=== PATIENT | female | born 1935 | race American Indian/Alaskan Native ===

== ENCOUNTER 2016-10-14 16:34 | Observation (INO) | payer MEDICARE, MEDICAID ==
--- NOTE | 2016-10-14 18:31 | ED PDOC ---
Arrival/HPI - General Chief Complaint: Abdominal Pain Time Seen by Provider: 10/14/16 16:50 Historian: Fdc - History of Present Illness Narrative History of Present Illness (Text): 10/14/16 18:27 A 81 year old female, whose past medical history includes CVA, was sent into the emergency department from long-term for a gastrostomy tube replacement. At baseline patient is non-verbal and has decreased response. ROS limited to patient not verbally communicating. PMD: Dr. Roberts Time/Duration: Prior to Arrival Symptom Course: Unchanged Quality: Other Context: Home (retirement) Past Medical History - Provider Review Nursing Documentation Reviewed: Yes - Cardiac Hx Cardiac Disorders: Yes Hx Hypertension: Yes Hx Pacemaker: No - Neurological HX Cerebrovascular Accident: Yes Hx Paralysis: Yes Hx Seizures: Yes - HEENT Hx HEENT Disorder: Yes Hx Cataracts: Yes - Hematological/Oncological Hx Blood Transfusions: No Hx Blood Transfusion Reaction: No - Musculoskeletal/Rheumatological Hx Musculoskeletal Disorders: Yes (CONTRACTURES/ R HEMIPARESIS) - Gastrointestinal Hx Gastrointestinal Disorders: Yes Hx Gastroesophageal Reflux: Yes - Genitourinary/Gynecological Hx Genitourinary Disorders: Yes Hx Incontinence: Yes - Psychiatric Hx Emotional Abuse: No Hx Physical Abuse: No Hx Substance Use: No - Surgical History Other/Comment: gastrostomy - Anesthesia Hx Anesthesia: Yes Hx Anesthesia Reactions: No Hx Malignant Hyperthermia: No - Suicidal Assessment Feels Threatened In Home Enviroment: No Family/Social History - Physician Review Nursing Documentation Reviewed: Yes Family/Social History: No Known Family HX Smoking Status: Unknown If Ever Smoked Hx Alcohol Use: No Hx Substance Use: No Allergies/Home Meds Allergies/Adverse Reactions: Allergies No Known Allergies Allergy (Verified 02/17/16 14:29) Home Medications: Home Meds Medication Instructions Recorded Confirmed Famotidine 40 mg PEG QPM 12/12/12 02/17/16 Magnesium Hydroxide [Milk Of 5 ml PEG PRN PRN 12/12/12 02/17/16 Magnesia] Multivit-Minerals/Ferrous Gluc 15 ml PEG DAILY 12/12/12 02/17/16 [Certavite 15 ml] levETIRAcetam [Keppra] 5 ml PEG BID 12/12/12 02/17/16 Nitroglycerin [Nitro-Dur] 1 patch TD QAM 04/25/14 02/17/16 Acetaminophen [Tylenol 160mg/5ml 20 ml PEG Q4 11/13/15 02/20/16 Oral Soln] Amlodipine Besylate [Norvasc] 2.5 mg PEG QAM 11/13/15 02/17/16 Clopidogrel Bisulfate [Plavix] 75 mg PEG DAILY 11/13/15 02/17/16 Furosemide [Lasix] 40 mg PEG BID 11/13/15 02/20/16 Lactose-Reduced Food/Fiber [Jevity 60 ml PEG Q1 11/13/15 02/17/16 1 Kulwinder 240 ml] Levothyroxine Sodium 250 mcg PEG DAILY 11/13/15 02/17/16 Calmoseptine Ointment 1 pkt TOP Q8 02/17/16 02/17/16 Desitin 13% 13 % TOP Q8 02/17/16 02/17/16 Jevity 1 Kulwinder 840 ml PEG 02/17/16 Milk Of Magnesia 30 ml PEG HS PRN 02/17/16 02/17/16 Levofloxacin [Levaquin] 500 mg PEG DAILY 02/20/16 02/20/16 Review of Systems - Review of Systems Systems not reviewed;Unavailable: Other (Patient is not verbally communicating) Physical Exam - Physical Exam Physical Exam Limitations: Clinical Condition Vital Signs Reviewed: Yes Vital Signs Temp Pulse Resp BP Pulse Ox 10/14/16 21:30 98.6 F 66 18 127/67 100 10/14/16 18:35 71 16 95/54 L 100 10/14/16 16:35 98.6 F 72 17 106/63 96 Temperature: Afebrile Blood Pressure: Normal Pulse: Regular Respiratory Rate: Normal Appearance: Positive for: Non-Toxic, Comfortable, Other (Obese female) Mental Status: No: Agitated, Lethargic - Systems Exam Head: Present: Atraumatic, Normocephalic Mouth: Present: Dry Respiratory/Chest: Present: Clear to Auscultation, Good Air Exchange. No: Respiratory Distress, Accessory Muscle Use Cardiovascular: Present: Regular Rate and Rhythm, Normal S1, S2. No: Murmurs Abdomen: Present: Normal Bowel Sounds (there is a tube in orifice in abdomen with some discharge surrounding the site. no surrounding cellulitis or tenderness. abdomen is soft.). No: Tenderness, Distention, Peritoneal Signs Neurological: No: Speech Normal (At baseline, not verbal) Skin: Present: Warm, Dry, Normal Color. No: Rashes Psychiatric: Present: Alert. No: Oriented x 3, Agitated, Lethargic Medical Decision Making ED Course and Treatment: 10/14/16 18:27 Impression: A 81 year old female sent in for gastrostomy tube replacement. Plan: -- Labs -- Urine culture and Urinalysis -- Reassess and disposition Progress Notes: Case discussed with Dr. Roberts, who accepts admission to med/surg for dislodged g-tube. dr roberts came to see pt at bedside. reqiests [facility] manager dr castaneda to consult for gtube replacement called dr castaneda 813 pm gi fellow responded [address] Hopkins - requested xray of abdomen- whcih was ordered. 10/14/16 20:13 10/14/16 20:21 10/14/16 21:02 10/14/16 21:05 - Lab Interpretations I have reviewed the lab results: Yes - Medication Orders Current Medication Orders: Famotidine (Pepcid) 20 mg IVP DAILY [facility] Last Admin: 10/15/16 09:53 Dose: 20 MG IVP Administration Document 10/15/16 09:53 SD (Rec: 10/15/16 09:53 SD [id number]) Charges for Administration # of IVP Administrations 1 Furosemide (Lasix) 40 mg IVP DAILY [facility] Last Admin: 10/15/16 09:57 Dose: 40 MG MAR Blood Pressure Document 10/15/16 09:57 SD (Rec: 10/15/16 10:07 SD [id number]) Blood Pressure Blood Pressure (100/60-150/90) 119/58 IVP Administration Document 10/15/16 09:57 SD (Rec: 10/15/16 10:07 SD [id number]) Charges for Administration # of IVP Administrations 1 Levetiracetam (Keppra 500mg Ivpb) 100 mls @ 400 mls/hr IVPB Q12 [facility] Last Admin: 10/15/16 09:52 Dose: 400 MLS/HR eMAR Start Stop Document 10/15/16 09:52 SD (Rec: 10/15/16 09:52 SD [id number]) Intravenous Solution Start Date 10/15/16 Start Time 09:52 End Date 10/15/16 End time 10:07 Total Infusion Time 15 Sodium Chloride (Sodium Chloride 0.45%) 1,000 mls @ 30 mls/hr IV .Q24H [facility] Last Admin: 10/14/16 21:19 Dose: 30 MLS/HR eMAR Start Stop Document 10/14/16 21:19 MR (Rec: 10/14/16 21:19 MR [id number]) Intravenous Solution Start Date 10/14/16 Start Time 21:00 Sodium Chloride (Sodium Chloride 0.9%) 1,000 mls @ 75 mls/hr IV .[id number] [facility] Stop: 10/15/16 16:16 Nitroglycerin (Nitro-Dur 0.2 Mg/Hr Patch) 1 patch TD QAM [facility] Last Admin: 10/15/16 10:07 Dose: Discontinued Medications Amlodipine Besylate (Norvasc) 2.5 mg PEG QAM [facility] Cefazolin Sodium (Ancef) Confirm Administered Dose 1 gm .ROUTE .STK-MED ONE Stop: 10/15/16 13:39 Potassium Chloride (Potassium Chloride 10 Meq/100 Ml) 100 mls @ 100 mls/hr IVPB ONCE ONE Stop: 10/15/16 09:31 Last Admin: 10/15/16 09:52 Dose: 100 MLS/HR eMAR Start Stop Document 10/15/16 09:52 SD (Rec: 10/15/16 09:53 SD [id number]) Intravenous Solution Start Date 10/15/16 Start Time 09:53 End Date 10/15/16 End time 10:53 Total Infusion Time 60 Levothyroxine Sodium (Synthroid) 250 mcg PEG DAILY [facility] Midazolam HCl (Versed Inj) Confirm Administered Dose 2 mg .ROUTE .STK-MED ONE Stop: 10/15/16 13:39 Ondansetron HCl (Zofran Inj) 4 mg IVP ONCE PRN PRN Reason: Nausea/Vomiting Stop: 10/15/16 14:14 Propofol (Diprivan) Confirm Administered Dose 200 mg .ROUTE .STK-MED ONE Stop: 10/15/16 13:41 - Scribe Statement The provider has reviewed the documentation as recorded by the Benjaminibshahid Becerra Provider Scribe Attestation: All medical record entries made by the Scribe were at my direction and personally dictated by me. I have reviewed the chart and agree that the record accurately reflects my personal performance of the history, physical exam, medical decision making, and the department course for this patient. I have also personally directed, reviewed, and agree with the discharge instructions and disposition. Disposition/Present on Arrival - Present on Arrival Any Indicators Present on Arrival: No History of DVT/PE: No History of Uncontrolled Diabetes: No Urinary Catheter: No History of Decub. Ulcer: No History Surgical Site Infection Following: None - Disposition Have Diagnosis and Disposition been Completed?: Yes Diagnosis: Gastrostomy tube obstruction Disposition: HOSPITALIZED Disposition Time: 18:00 Patient Plan: Observation Patient Problems: Current Active Problems Problem Status Diagnosed Gastrostomy tube obstruction Acute Condition: STABLE
[2016-10-14] MEDS ORDERED: Sodium Chloride 0.45% 1,000 ML IV SCH (19:15)
[2016-10-14 19:38] LABS: ADD MANUAL DIFF? NO
[2016-10-14 19:41] LABS: BASO # 0.02 K/mm3 (0.0-2.0); BASO % 0.3 % (0.0-3.0); EOS # 0.3 (0.0-0.7); EOS % 4.1 % (1.5-5.0); GRAN % 58.6 % (50.0-68.0); HEMATOCRIT 38.1 % (36.0-48.0); LYMPH # 1.6 (1.2-3.4); LYMPH % 24.1 % (22.0-35.0); MEAN CELL VOLUME 91.6 fL (80.0-105.0); MEAN CORPUSCULAR HEMOGLOBIN 29.6 pg (25.0-35.0); MEAN CORPUSCULAR HGB CONC 32.3 g/dl (31.0-37.0); MEAN PLATELET VOLUME 10.7 fl (7.0-11.0); MONO # 0.9 (0.1-0.6); MONO % 12.9 % (1.0-6.0); PLATELET COUNT 250 10^3/uL (120.0-450.0); RED CELL DISTRIBUTION WIDTH 15.8 % (11.5-14.5); WHITE BLOOD COUNT 6.7 10^3/ul (4.5-11.0)
[2016-10-14 19:52] LABS: ALKALINE PHOSPHATASE 98 U/L (38-133); ALT/SGPT 17 U/L (7-56); AST/SGOT 26 U/L (15-39); BILIRUBIN,TOTAL 0.7 mg/dL (0.2-1.3); BLOOD UREA NITROGEN 27 mg/dL (7-21); CALCIUM 9.5 mg/dL (8.4-10.5); CARBON DIOXIDE 35 mmol/L (21-33); CHLORIDE 100 mmol/L (98-107); GFR AFRICAN-AMERICAN > 60; GLUCOSE,RANDOM 83 mg/dL (70-110); INR 1.04 (0.93-1.08); PARTIAL THROMBOPLASTIN TIME 32.1 Seconds (23.7-30.8); POTASSIUM 4.1 mmol/L (3.6-5.0); SODIUM 142 mmol/L (132-148); TOTAL PROTEIN 7.3 g/dL (5.8-8.3)
[2016-10-14] MEDS: levETIRAcetam 500mg IVPB 100 ML IVPB SCH (23:46)
--- NOTE | 2016-10-15 04:56 | HP ---
SUBJECTIVE: I know the patient for many years at [facility] where I see her, she lives the re the permanently. I had a call from the nurse today that apparently the PEG tube got dislodged and it needs to be changed. So she was sent to the Emergency Room for evaluation, is too late get anyth ing done tonight. We are going to put her on observation, keep her overnight, and hopefully tomorrow they can do the PEG tube change and discharge her back to the care home tomorrow. PAST MEDICAL HISTORY: She has a past medical history of hypertension, CVA, paralysis, seizures, charisma racts and GERD. She has contractures with right weakness and paralysis, reflux disease, incontinence . She has a gastrostomy tube. FAMILY HISTORY: Hypertension in the family. SOCIAL HISTORY: No smoking, no drinking, no drugs. She is 81 years old. ALLERGIES: No known drug allergies. MEDICATIONS: She takes famotidine, multivitamin, Keppra for seizures, Nitro drip for CAD, Tylenol, N orvasc, hypertension, Plavix secondary to stroke, Lasix for the CHF, levothyroxine for hypothyroidism . She is on Jevity. REVIEW OF SYSTEMS: She is nonverbal. She just looks at you, so it is hard to get any sense of revie w of systems. PHYSICAL EXAM: HEENT: His head is atraumatic, normocephalic. She will look at you. She is nonverbal. Throat is m oist. NECK: Supple. HEART: Regular rate. LUNGS: Decreased breath sounds, but clear with poor inspiration. ABDOMEN: Soft, morbidly obese. PEG tube is missing. Positive bowel sounds. EXTREMITIES: Left side has +2/4 pitting edema. Right side has trace edema. She has right-sided par alysis from an old stroke. Her PEG tube is dislodged. IMPRESSION AND PLAN: Have a GI consult for PEG tube placement. We will check her labs, put her back on her medications. I know this patient very well from the care home, she is here for PEG dislod gement. Oswaldo Russell DO cc: [id number] TT: 10/15/2016 04:55:43 [email or web address]
[2016-10-15 06:00] VITALS: BMI 44.6
[2016-10-15 07:10] LABS: HEMATOCRIT 36.1 % (36.0-48.0); MEAN CELL VOLUME 91.4 fL (80.0-105.0); MEAN CORPUSCULAR HEMOGLOBIN 29.1 pg (25.0-35.0); MEAN CORPUSCULAR HGB CONC 31.9 g/dl (31.0-37.0); RED CELL DISTRIBUTION WIDTH 15.7 % (11.5-14.5); WHITE BLOOD COUNT 6.1 10^3/ul (4.5-11.0)
[2016-10-15 07:36] LABS: ALKALINE PHOSPHATASE 95 U/L (38-133); ALT/SGPT 18 U/L (7-56); AST/SGOT 22 U/L (15-39); BILIRUBIN,TOTAL 0.6 mg/dL (0.2-1.3); BLOOD UREA NITROGEN 26 mg/dL (7-21); CALCIUM 9.2 mg/dL (8.4-10.5); CARBON DIOXIDE 32 mmol/L (21-33); CHLORIDE 104 mmol/L (98-107); GFR AFRICAN-AMERICAN > 60; GLUCOSE,RANDOM 85 mg/dL (70-110); POTASSIUM 3.5 mmol/L (3.6-5.0); SODIUM 145 mmol/L (132-148); TOTAL PROTEIN 6.9 g/dL (5.8-8.3)
[2016-10-15] MEDS ORDERED: Potassium Chloride 10 mEq 100 ML IVPB ONE (08:32)
--- NOTE | 2016-10-15 08:43 | RAD ---
HISTORY: g tube replacment COMPARISON: Comparison is made to 11/14/2015 FINDINGS: BOWEL: [id number] constipation is noted. No evidence of SBO. BONES: Normal. OTHER FINDINGS: None. IMPRESSION: [id number] constipation.
--- NOTE | 2016-10-15 09:46 | PN ---
DATE: 10/15/2016 The patient is resting comfortably in bed. She is alert. She is at her baseline. She is getting he r medications through the IV now because she has a feeding tube issue, and she is n.p.o. PHYSICAL EXAMINATION: VITAL SIGNS: Temp 98, 72 pulse, 169/88 blood pressure, 20 respiratory rate, 100% O2 sat on room air. HEENT: Head is atraumatic, normocephalic. Her eyes are open - that is her baseline. Nonverbal. HEART: Regular rate. LUNGS: Decreased breath sounds, but clear. ABDOMEN: Soft, morbidly obese. PEG tube is out. EXTREMITIES: No edema. She has right-sided paralysis from the stroke. PLAN: The plan, as far as I can see, is to put the PEG tube back in today with [facility] and then get her d ischarged later today back to the [facility] where nurses can take care of her, watch the f eedings, and keep an eye on her. I put the plan in place. Hopefully, CAHY will do the PEG tube today, and we can get her discharged later this afternoon. She is here for PEG tube placement. She is on observation. Oswaldo Russell DO cc: [id number] TT: 10/15/2016 09:46:24 Confirmation # [id number] Dictation # [id number] jn
[2016-10-15] MEDS: levETIRAcetam 500mg IVPB 100 ML IVPB SCH (09:52)
[2016-10-15] MEDS ORDERED: Nitroglycerin 0.2 mg/hr Top Patch TD SCH (10:00)
[2016-10-15] MEDS ORDERED: Levothyroxine 200 MCG TAB PEG SCH (10:00)
--- NOTE | 2016-10-15 10:54 | CON ---
DATE: 10/15/2016 HISTORY OF PRESENT ILLNESS: The patient is an 81-year-old woman who presents from a assisted aft er her feeding tube and PEG fell out. PAST MEDICAL HISTORY: Notable for history of multiple CVAs in the past which has resulted in the pat ient requiring a feeding tube. Her cardiac risk factors include hypertension. In addition, the elaina ent suffers from hypothyroidism. Her previous cardiac evaluation in 01/2016 revealed normal LV function with LVH. There was mild pulm onary hypertension. SOCIAL HISTORY: The patient is from a assisted. REVIEW OF SYSTEMS: Unavailable. PHYSICAL EXAMINATION: GENERAL: The patient is in bed, unable to answer questions. Blood pressure 156/82, heart rate is in the 70s. NECK: Negative JVD. LUNGS: Decreased breath sounds without rales. HEART: Reveals S1, S2. EXTREMITIES: Without edema. There is no EKG in the chart. LABORATORIES: Hemoglobin is 11.5. Chemistries: The potassium is 3.5, BUN and creatinine is 26/0.6. IMPRESSION: 1. Status post multiple cerebrovascular accidents. 2. Diabetes mellitus. 3. Hypertension. 4. Anemia. 5. Marked multi-CVA and dementia. PLAN: Given these findings, the patient does not need anesthesia to have her PEG replaced. I have d iscussed it with the GI consultation who will be doing a bedside replacement of her PEG tube. No fur ther cardiac workup is indicated at this time. Ayan Lee MD cc: [id number] TT: 10/15/2016 10:54:12 Confirmation # [id number] Dictation # [id number] [email or web address]
--- NOTE | 2016-10-15 12:20 | CP.PCM.CON ---
<Oz Case - Last Filed: 10/15/16 12:41> History of Present Illness - History of Present Illness History of Present Illness: PGY4 GI Fellow Consult Note Patient is an 81yo female with PMHx significant for CVA, vascular dementia, seizures, HTN, GERD who presented to the ED from [place] with PEG dislodgement. The patient is unable to provide any history. The patient was noted to have had PEG dislodged and was immediately sent to the ED for evaluation. The PEG tube was placed in the external opening to maintain patency. A bedside PEG exchange by our service was unsuccessful. Currently, patient has been maintained NPO. She is on plavix for CVA with last dose prior to admission. Case discussed with the patient's daughter iGovana (# on chart). PMHx: See HPI PSHx: Multiple PEG exchanges, last performed 10/2015 FHx: Multiple members with HTN Social: No history of tobacco, EtOH or illicit drug use Review of Systems - Review of Systems Review of Systems: Unable to perform given clinical condition, aphasic Past Patient History - Past Social History Smoking Status: Unknown If Ever Smoked - CARDIAC Hx Cardiac Disorders: Yes Hx Hypertension: Yes Hx Pacemaker: No - NEUROLOGICAL HX Cerebrovascular Accident: Yes Hx Paralysis: Yes Hx Seizures: Yes - HEENT Hx HEENT Problems: Yes Hx Cataracts: Yes - HEMATOLOGICAL/ONCOLOGICAL Hx Blood Transfusions: No Hx Blood Transfusion Reaction: No - MUSCULOSKELETAL/RHEUMATOLOGICAL Hx Musculoskeletal Disorders: Yes (CONTRACTURES/ R HEMIPARESIS) - GASTROINTESTINAL Hx Gastrointestinal Disorders: Yes Hx Gastroesophageal Reflux: Yes - GENITOURINARY/GYNECOLOGICAL Hx Genitourinary Disorders: Yes Hx Incontinence: Yes - PSYCHIATRIC Hx Emotional Abuse: No Hx Physical Abuse: No Hx Substance Use: No - SURGICAL HISTORY Other/Comment: gastrostomy - ANESTHESIA Hx Anesthesia: Yes Hx Anesthesia Reactions: No Hx Malignant Hyperthermia: No Meds Allergies/Adverse Reactions: Allergies Allergy/AdvReac Type Severity Reaction Status Date / Time No Known Allergies Allergy Verified 02/17/16 14:29 - Medications Medications: Current Medications Famotidine (Pepcid) 20 mg IVP DAILY [facility] Last Admin: 10/15/16 09:53 Dose: 20 mg Furosemide (Lasix) 40 mg IVP DAILY [facility] Last Admin: 10/15/16 09:57 Dose: 40 mg Levetiracetam (Keppra 500mg Ivpb) 100 mls @ 400 mls/hr IVPB Q12 [facility] Last Admin: 10/15/16 09:52 Dose: 400 mls/hr Sodium Chloride (Sodium Chloride 0.45%) 1,000 mls @ 30 mls/hr IV .Q24H [facility] Last Admin: 10/14/16 21:19 Dose: 30 mls/hr Nitroglycerin (Nitro-Dur 0.2 Mg/Hr Patch) 1 patch TD QAM [facility] Last Admin: 10/15/16 10:07 Dose: Not Given Physical Exam - Constitutional Appears: Non-toxic, No Acute Distress Additional comments: obese - Eye Exam Eye Exam: PERRL - ENT Exam ENT Exam: Mucous Membranes Dry - Respiratory Exam Respiratory Exam: Clear to Auscultation Bilateral. absent: Rales, Rhonchi, Wheezes - Cardiovascular Exam Cardiovascular Exam: RRR, +S1, +S2 - GI/Abdominal Exam GI & Abdominal Exam: Normal Bowel Sounds, Soft. absent: Distended, Firm, Guarding, Organomegaly, Rigid, Tenderness Additional comments: PEG site open but cannot pass tube through to stomach - Extremities Exam Additional comments: contractures noted - Skin Skin Exam: Dry, Warm Results - Vital Signs Recent Vital Signs: Last Vital Signs Temp 98.0 F 10/15/16 08:00 Pulse 70 10/15/16 08:00 Resp 20 10/15/16 08:00 BP 119/58 L 10/15/16 09:57 Pulse Ox 98 10/15/16 08:00 - Labs Result Diagrams: 10/15/16 06:26 10/15/16 06:26 Labs: Laboratory Results - last 24 hr 10/14/16 10/15/16 19:30 06:26 WBC 6.7 D 6.1 RBC 4.16 3.95 Hgb 12.3 11.5 L Hct 38.1 36.1 MCV 91.6 91.4 MCH 29.6 29.1 MCHC 32.3 31.9 RDW 15.8 H 15.7 H Plt Count 250 238 MPV 10.7 11.0 Gran % 58.6 Lymph % (Auto) 24.1 Prowers % (Auto) 12.9 H Eos % (Auto) 4.1 Baso % (Auto) 0.3 Gran # 3.90 Lymph # 1.6 Prowers # 0.9 H Eos # 0.3 Baso # 0.02 PT 11.2 INR 1.04 APTT 32.1 H Sodium 142 145 Potassium 4.1 3.5 L Chloride 100 104 Carbon Dioxide 35 H 32 Anion Gap 11 13 BUN 27 H 26 H Creatinine 0.6 0.6 Est GFR ( Amer) > 60 > 60 Est GFR (Non-Af Amer) > 60 > 60 Random Glucose 83 85 Calcium 9.5 9.2 Total Bilirubin 0.7 0.6 AST 26 22 ALT 17 18 Alkaline Phosphatase 98 95 Total Protein 7.3 6.9 Albumin 3.7 3.4 Globulin 3.6 3.4 Albumin/Globulin Ratio 1.0 L 1.0 L Assessment & Plan - Assessment and Plan (Free Text) Assessment: Patient is an 81yo female with PMHx significant for CVA, vascular dementia, seizures, HTN, GERD who presented to the ED from [place] with PEG dislodgement. -PEG tube malfunction -H/O CVA on Plavix -HTN Plan: -NPO -Failed bedside replacement -Will attempt to place endoscopically this afternoon -Plavix currently being held, last dose yesterday - Date & Time Date: 10/15/16 Time: 06:50 <Reynaldo Kim - Last Filed: 10/15/16 15:29> Meds - Medications Medications: Current Medications Famotidine (Pepcid) 20 mg IVP DAILY [facility] Last Admin: 10/15/16 09:53 Dose: 20 mg Furosemide (Lasix) 40 mg IVP DAILY [facility] Last Admin: 10/15/16 09:57 Dose: 40 mg Levetiracetam (Keppra 500mg Ivpb) 100 mls @ 400 mls/hr IVPB Q12 [facility] Last Admin: 10/15/16 09:52 Dose: 400 mls/hr Sodium Chloride (Sodium Chloride 0.45%) 1,000 mls @ 30 mls/hr IV .Q24H [facility] Last Admin: 10/14/16 21:19 Dose: 30 mls/hr Sodium Chloride (Sodium Chloride 0.9%) 1,000 mls @ 75 mls/hr IV .[id number] [facility] Stop: 10/15/16 16:16 Nitroglycerin (Nitro-Dur 0.2 Mg/Hr Patch) 1 patch TD QAM [facility] Last Admin: 10/15/16 10:07 Dose: Not Given Results - Vital Signs Recent Vital Signs: Last Vital Signs Temp 98 F 10/15/16 15:00 Pulse 70 10/15/16 15:00 Resp 14 10/15/16 15:00 BP 162/84 H 10/15/16 15:00 Pulse Ox 99 10/15/16 15:00 - Labs Result Diagrams: 10/15/16 06:26 10/15/16 06:26 Labs: Laboratory Results - last 24 hr 10/14/16 10/15/16 19:30 06:26 WBC 6.7 D 6.1 RBC 4.16 3.95 Hgb 12.3 11.5 L Hct 38.1 36.1 MCV 91.6 91.4 MCH 29.6 29.1 MCHC 32.3 31.9 RDW 15.8 H 15.7 H Plt Count 250 238 MPV 10.7 11.0 Gran % 58.6 Lymph % (Auto) 24.1 Prowers % (Auto) 12.9 H Eos % (Auto) 4.1 Baso % (Auto) 0.3 Gran # 3.90 Lymph # 1.6 Prowers # 0.9 H Eos # 0.3 Baso # 0.02 PT 11.2 INR 1.04 APTT 32.1 H Sodium 142 145 Potassium 4.1 3.5 L Chloride 100 104 Carbon Dioxide 35 H 32 Anion Gap 11 13 BUN 27 H 26 H Creatinine 0.6 0.6 Est GFR ( Amer) > 60 > 60 Est GFR (Non-Af Amer) > 60 > 60 Random Glucose 83 85 Calcium 9.5 9.2 Total Bilirubin 0.7 0.6 AST 26 22 ALT 17 18 Alkaline Phosphatase 98 95 Total Protein 7.3 6.9 Albumin 3.7 3.4 Globulin 3.6 3.4 Albumin/Globulin Ratio 1.0 L 1.0 L Attending/Attestation - Attestation I have personally seen and examined this patient.: Yes I have fully participated in the care of the patient.: Yes I have reviewed all pertinent clinical information: Yes Notes (Text): Patient seen and examined with GI fellow. Agree with his note as documented above with the following additions/exceptions. This is an 81 yo female with PMHx significant for vascular dementia, stroke, seizures, HTN, who presented from intermediate with dislodged PEG. Unclear the timing of when PEG dislodged. Site with old PEG tube, slight mucous/blood. Attempted bedside placement with balloon replacement tube, however tract partially closed. Keep NPO, will plan for endoscopic placement today. Discussed with Dr. Russell. 10/15/16 12:36
[2016-10-15] MEDS ORDERED: Midazolam 2 MG/2 ML VIAL ONE (13:38)
[2016-10-15] MEDS ORDERED: Propofol 10 mg/ml Inj (20 ML) ONE (13:40)
[2016-10-15] MEDS ORDERED: Sodium Chloride 0.9% 1,000 ML IV SCH (14:15)
[2016-10-15 17:21] VITALS: BP 125/62; PULSE 70; RESP 18; TEMP 97.8; O2SAT 94
--- NOTE | 2016-10-16 18:43 | CARD ---
APPROVED REPORT EKG Measurement Heart [id number] PA [id number] <Conclusion> Normal sinus rhythm Left axis deviation Abnormal ECG
== END 2016-10-15 18:32 ==
LOC: ED 16:34 → ERH 18:24 → 5RNO 10-15 00:09
PROVIDERS: ADMIT Family Medicine; ATTEND Family Medicine
DX: K94.23 Gastrostomy malfunction (principal); Z43.1 Encounter for attention to gastrostomy; D64.9 Anemia, unspecified; E03.9 Hypothyroidism, unspecified; E11.9 Type 2 diabetes mellitus without complications; F01.50 Vascular dementia, unspecified severity, without behavioral disturbance, psychotic disturbance, mood disturbance, and anxiety; G81.91 Hemiplegia, unspecified affecting right dominant side; I10 Essential (primary) hypertension; I27.2 Other secondary pulmonary hypertension; K21.9 Gastro-esophageal reflux disease without esophagitis; K44.9 Diaphragmatic hernia without obstruction or gangrene; Y83.3 Surgical operation with formation of external stoma as the cause of abnormal reaction of the patient, or of later complication, without mention of misadventure at the time of the procedure; Z79.02 Long term (current) use of antithrombotics/antiplatelets; Z82.49 Family history of ischemic heart disease and other diseases of the circulatory system; Z86.73 Personal history of transient ischemic attack (TIA), and cerebral infarction without residual deficits; R56.9 Unspecified convulsions; H26.9 Unspecified cataract; M62.40 Contracture of muscle, unspecified site; R32 Unspecified urinary incontinence; I25.10 Atherosclerotic heart disease of native coronary artery without angina pectoris; I50.9 Heart failure, unspecified
CPT/HCPCS: 36415; 43246; 74000; 80053; 85025; 85027; 85610; 85730; 93005; 99283; G0378; J1940; J1953; J2250; J2704; J3480; J7030; J7040

== ENCOUNTER 2017-06-15 10:47 | Inpatient (IN) | payer MEDICARE, MEDICAID ==
[2017-06-15 11:21] VITALS: BMI 27.4
--- NOTE | 2017-06-15 12:06 | ED PDOC ---
Arrival/HPI - General Chief Complaint: Medical Clearance Time Seen by Provider: 06/15/17 10:57 Historian: Snf - History of Present Illness Narrative History of Present Illness (Text): 06/15/17 11:51 A 82 year old female, whose past medical history includes CVA, hypertension, seizures, GERD with PEG, and CHF, presents to the emergency department via EMS sent in by [facility] for GT replacement. At baseline the patient is non-verbal and body is contracted. HPI and ROS is limited due to the patient being non-verbal. HPI is obtained from jail. Symptom Onset: Other Activities at Onset: Rest Context: Other (jail) Past Medical History - Provider Review Nursing Documentation Reviewed: Yes - Cardiac Hx Cardiac Disorders: Yes Hx Hypertension: Yes Hx Pacemaker: No - Neurological HX Cerebrovascular Accident: Yes Hx Paralysis: Yes Hx Seizures: Yes - HEENT Hx HEENT Disorder: Yes Hx Cataracts: Yes - Hematological/Oncological Hx Blood Transfusions: No Hx Blood Transfusion Reaction: No - Musculoskeletal/Rheumatological Hx Musculoskeletal Disorders: Yes (CONTRACTURES/ R HEMIPARESIS) - Gastrointestinal Hx Gastrointestinal Disorders: Yes Hx Gastroesophageal Reflux: Yes - Genitourinary/Gynecological Hx Genitourinary Disorders: Yes Hx Incontinence: Yes - Psychiatric Hx Emotional Abuse: No Hx Physical Abuse: No Hx Substance Use: No - Surgical History Other/Comment: gastrostomy - Anesthesia Hx Anesthesia: Yes Hx Anesthesia Reactions: No Hx Malignant Hyperthermia: No - Suicidal Assessment Feels Threatened In Home Enviroment: No Family/Social History - Physician Review Nursing Documentation Reviewed: Yes Family/Social History: No Known Family HX Smoking Status: Unknown If Ever Smoked Hx Alcohol Use: No Hx Substance Use: No Allergies/Home Meds Allergies/Adverse Reactions: Allergies No Known Allergies Allergy (Verified 02/17/16 14:29) Home Medications: Home Meds Medication Instructions Recorded Confirmed Multivit-Minerals/Ferrous Gluc 15 ml PEG DAILY 12/12/12 06/15/17 [Certavite 15 ml] levETIRAcetam [Keppra] 5 ml PEG BID 12/12/12 06/15/17 Nitroglycerin [Nitro-Dur] 1 patch TD QAM 04/25/14 06/15/17 Acetaminophen [Tylenol 160mg/5ml 20 ml PEG Q4 11/13/15 06/15/17 Oral Soln] Amlodipine Besylate [Norvasc] 2.5 mg PEG QAM 11/13/15 06/15/17 Clopidogrel Bisulfate [Plavix] 75 mg PEG DAILY 11/13/15 06/15/17 Furosemide [Lasix] 40 mg PEG BID 11/13/15 06/15/17 Levothyroxine Sodium 250 mcg PEG DAILY 11/13/15 06/15/17 Milk Of Magnesia 30 ml PEG HS PRN 02/17/16 06/15/17 Pantoprazole [Protonix] 40 mg PEG DAILY 06/15/17 06/15/17 Potassium Chloride [Klor-Con] 20 meq PEG DAILY 06/15/17 06/15/17 Review of Systems - Review of Systems Systems not reviewed;Unavailable: Other (non-verbal; CVA history) Physical Exam Vital Signs Reviewed: Yes Vital Signs Temp Pulse Resp BP Pulse Ox 06/15/17 15:21 76 16 122/61 100 06/15/17 13:37 79 18 125/73 98 06/15/17 12:18 97.6 F 88 18 128/75 98 06/15/17 11:11 98.9 F 82 18 130/71 98 Temperature: Afebrile Blood Pressure: Normal Pulse: Regular Respiratory Rate: Normal Appearance: Positive for: Non-Toxic Pain Distress: None Mental Status: Positive for: other (Awake and non-verbal) - Systems Exam Head: Present: Atraumatic, Normocephalic Pupils: Present: PERRL Conjunctiva: Present: Normal Mouth: Present: Dry Neck: Present: Normal Range of Motion Respiratory/Chest: Present: Clear to Auscultation, Other (poor inspiration). No : Respiratory Distress, Accessory Muscle Use Cardiovascular: Present: Regular Rate and Rhythm, Normal S1, S2. No: Murmurs Abdomen: Present: Other (20e52ay induration area in epigastric area which crosses midline that extends underneath the left breast; areas of fluctuance and oozing with warmth; there is a 4x1.5cm area of superficial black ulceration ; G tube in place; rest of the abdomen is non-tender.) Upper Extremity: Present: Normal Inspection. No: Cyanosis, Edema Lower Extremity: Present: Edema (1+ edema), Other (left lower extremity is larger than the right lower extremity.) Neurological: Present: GCS=15, CN II-XII Intact. No: Speech Normal (non-verbal) Skin: Present: Warm, Dry, Normal Color. No: Rashes Psychiatric: Present: Alert Medical Decision Making ED Course and Treatment: 06/15/17 12:14 Impression: A 82 year old female with G tube replacement. Differential Diagnosis included but are not limited to: intrabdominal abscess vs fistula with cellulitis vs fasciitis Plan: -- EKG -- Chest X-ray -- Labs -- Ab & Pel CT -- Urinalysis -- Reassess and disposition Progress Notes: 06/15/17 12:10 Dr. Hartley came to evaluate the patient at bedside. He was able to express a large amount of foul smelling brown material 06/15/17 15:20 Procedure: US Superintendent Of Generation : Ayan Sanchez MD Report Date : 06/15/2017 15:31:45 HISTORY:Leg pain and swelling. Evaluate for DVT PHYSICIAN(S): Ayan Ocampo MD. FINDINGS: There appears to be somewhat localize nonocclusive thrombus in the distal right common femoral vein and proximal right femoral vein. This is likely chronic. No acute DVT is seen. The mid to distal right femoral vein and popliteal vein is patent and compressible. There is no sonographic evidence for deep venous thrombosis in the visualized segments of left lower extremity. IMPRESSION: Limited adherent nonocclusive chronic thrombus in the distal right common femoral vein and proximal right femoral vein. No acute DVT is appreciated PROCEDURE: CT Abdomen and Pelvis with contrast Superintendent Of Generation : Micheal Bloom MD Report Date : 06/15/2017 14:04:34 HISTORY:upper abdominal collection with feculant matter FINDINGS: LOWER THORAX:The gastrostomy tube is displaced out of the stomach. The tip is seen in the subcutaneous space near the midline. There is a large fluid collection to the left of midline extending laterally measuring 14 cm in with by 8 cm height by 6 cm AP. A small amount of contrast was injected into the tube which can be seen in the subcutaneous space. There is no communication with the stomach. LIVER:Unremarkable. No gross lesion or ductal dilatation. GALLBLADDER AND BILE DUCTS:Unremarkable. PANCREAS:Unremarkable. No gross lesion or ductal dilatation. SPLEEN:Unremarkable. ADRENALS:Unremarkable. No mass. KIDNEYS AND URETERS:Unremarkable. No hydronephrosis. No solid mass. VASCULATURE:Unremarkable. No aortic aneurysm. BOWEL:Unremarkable. No obstruction. No gross mural thickening. Diastasis recti is seen in the lower abdomen. A portion of the colon protrudes into this outpouching. APPENDIX:Normal appendix. PERITONEUM:Unremarkable. No free fluid. No free air. LYMPH NODES:Unremarkable. No enlarged lymph nodes. BLADDER:Unremarkable. REPRODUCTIVE:Unremarkable. BONES:No acute fracture. OTHER FINDINGS:None. IMPRESSION: The gastrostomy tube is displaced out of the stomach. The tip is seen in the subcutaneous space near the midline. There is a large fluid collection to the left of midline extending laterally measuring 14 cm in with by 8 cm height by 6 cm AP. A small amount of contrast was injected into the tube which can be seen in the subcutaneous space. There is no communication with the stomach. Procedure: Chest X-ray Superintendent Of Generation : Micheal Bloom MD Report Date : 06/15/2017 13:51:59 HISTORY:Sepsis Patient COMPARISON:02/20/2016 FINDINGS: LUNGS:No active pulmonary disease. PLEURA:No significant pleural effusion identified, no pneumothorax apparent. CARDIOVASCULAR:Moderate cardiomegaly OSSEOUS STRUCTURES:No significant abnormalities. VISUALIZED UPPER ABDOMEN:Normal. OTHER FINDINGS:None IMPRESSION: No active disease. 06/15/17 16:07 Patient with noted history with cellulitis with abscess. Vitals are unremarkable. VBG with lactic acid of 2.0 and no SIRS criteria so is not a code sepsis patient. Chemistry with hypernatremic dehydration but normal creatinine. Patient seen by Dr. Mckenzie, who started the patient on meropenem adn vanco. CT showing likely abscess with no communication into stomach. She will be admitted for IVF and IV antibiotics with surgical, ID, and GI consult. Case discussed with Dr. Russell for admission to his service. - Lab Interpretations Lab Results: 06/15/17 12:30 06/15/17 12:30 Lab Results 06/15/17 13:34: PT 13.8 H, INR 1.26 H, APTT 29.6 06/15/17 12:30: Sodium 155 H, Chloride 114 H, Potassium 4.0, Carbon Dioxide 35 H , Anion Gap 10, BUN 31 H, Creatinine 0.7, Est GFR ( Amer) > 60, Est GFR ( Non-Af Amer) > 60, Random Glucose 128 H, Calcium 9.1, Phosphorus 3.2, Magnesium 2.6 H, Total Bilirubin 0.5, AST 48 H, ALT 41, Alkaline Phosphatase 84, Lactate Dehydrogenase 600, Total Creatine Kinase 46, Troponin I 0.07 D, NT-Pro-B Natriuret Pep 533 H, Total Protein 6.4, Albumin 3.0, Globulin 3.5, Albumin/ Globulin Ratio 0.8 L, Lipase 17 L 06/15/17 12:30: pO2 50, VBG pH 7.42, VBG pCO2 56.0, VBG HCO3 36.3 H, VBG Total CO2 38.0 H, VBG O2 Sat (Calc) 88.1 H, VBG Base Excess 9.7 H, VBG Potassium 3.7, Sodium 155.0 H, Chloride 118.0 H, Glucose 131 H, Lactate 2.0, FiO2 21.0, Venous Blood Potassium 3.7 06/15/17 12:30: WBC 9.8 D, RBC 3.34 L, Hgb 9.4 L, Hct 30.8 L, MCV 92.2, MCH 28.1, MCHC 30.5 L, RDW 15.4 H, Plt Count 347, MPV 9.7, Gran % 78.1 H, Lymph % ( Auto) 12.3 L, Preston % (Auto) 7.7 H, Eos % (Auto) 1.7, Baso % (Auto) 0.2, Gran # 7.62 H, Lymph # 1.2, Preston # 0.8 H, Eos # 0.2, Baso # 0.02 - RAD Interpretation Radiology Orders: 06/15/17 11:58 CHEST PORTABLE [RAD] Stat 06/15/17 11:59 ABDOMEN & PELVIS [ABD PELVIS PO & IV CONTRAST] [CT] Stat 06/15/17 13:46 DUPLEX LOWER EXTRM VEIN BILAT [US] Stat - EKG Interpretation EKG Interpretation (Text): 06/15/17 16:16 NSR @ 88 with LAD; normal intervals; nonspecific T wave changes c/w previous. Interpreted by ED Physician: Yes Type: 12 lead EKG Comparison: Different from prev. EKG (10/15/16) - Medication Orders Current Medication Orders: Meropenem 1 gm/ Dextrose 100 mls @ 100 mls/hr IVPB Q8 CLAUDIA PRN Reason: Protocol Stop: 06/24/17 13:16 Last Admin: 06/15/17 15:45 Dose: 100 mls/hr eMAR Start Stop Document 06/15/17 15:45 HI (Rec: 06/15/17 15:46 HI [facility] [id number]) Intravenous Solution Start Date 06/15/17 Start Time 15:46 Discontinued Medications Vancomycin HCl 2 gm/ Sodium (Chloride) 500 mls @ 170 mls/hr IVPB ONCE ONE PRN Reason: Protocol Stop: 06/15/17 16:00 - Scribe Statement The provider has reviewed the documentation as recorded by the Scribe Mami Acosta Provider Scribe Attestation: All medical record entries made by the Scribe were at my direction and personally dictated by me. I have reviewed the chart and agree that the record accurately reflects my personal performance of the history, physical exam, medical decision making, and the department course for this patient. I have also personally directed, reviewed, and agree with the discharge instructions and disposition. Disposition/Present on Arrival - Present on Arrival Any Indicators Present on Arrival: No History of DVT/PE: No History of Uncontrolled Diabetes: No Urinary Catheter: No History of Decub. Ulcer: No History Surgical Site Infection Following: None - Disposition Have Diagnosis and Disposition been Completed?: Yes Diagnosis: Abdominal wall abscess Disposition: HOSPITALIZED Disposition Time: 12:10 Patient Plan: Admission Patient Problems: Current Active Problems Problem Status Onset Abdominal wall abscess Acute Condition: FAIR
[2017-06-15] MEDS ORDERED: Barium Sulfate Susp 2.1% w/v, 2.0% w/w 450 mL Bottle PO ONE (12:07)
[2017-06-15 12:53] LABS: BASO # 0.02 K/mm3 (0.0-2.0); BASO % 0.2 % (0.0-3.0); EOS # 0.2 (0.0-0.7); EOS % 1.7 % (1.5-5.0); GRAN # 7.62 (1.4-6.5); GRAN % 78.1 % (50.0-68.0); HEMATOCRIT 30.8 % (36.0-48.0); LYMPH # 1.2 (1.2-3.4); LYMPH % 12.3 % (22.0-35.0); MEAN CELL VOLUME 92.2 fl (80.0-105.0); MEAN CORPUSCULAR HEMOGLOBIN 28.1 pg (25.0-35.0); MEAN CORPUSCULAR HGB CONC 30.5 g/dl (31.0-37.0); MEAN PLATELET VOLUME 9.7 fl (7.0-11.0); MONO # 0.8 (0.1-0.6); MONO % 7.7 % (1.0-6.0); RED CELL DISTRIBUTION WIDTH 15.4 % (11.5-14.5); WHITE BLOOD COUNT 9.8 10^3/ul (4.5-11.0)
[2017-06-15 12:56] LABS: VENOUS BLOOD GAS BASE EXCESS 9.7 mmol/L (0.0-2.0); VENOUS BLOOD PH 7.42 (7.32-7.43)
[2017-06-15] MEDS ORDERED: Vancomycin 2 GM in Sodium Chloride 0.9% 500 ML IVPB ONE (13:04)
[2017-06-15 13:06] LABS: ALB/GLOB RATIO 0.8 (1.1-1.8); ALKALINE PHOSPHATASE 84 U/L (38-126); ALT/SGPT 41 U/L (7-56); AST/SGOT 48 U/L (14-36); BILIRUBIN,TOTAL 0.5 mg/dL (0.2-1.3); BLOOD UREA NITROGEN 31 mg/dL (7-21); CALCIUM 9.1 mg/dL (8.4-10.5); CARBON DIOXIDE 35 mmol/L (21-33); CHLORIDE 114 mmol/L (98-107); GFR AFRICAN-AMERICAN > 60; GLUCOSE,RANDOM 128 mg/dL (70-110); LIPASE 17 U/L (23-300); MAGNESIUM 2.6 mg/dL (1.7-2.2); PHOSPHOROUS 3.2 mg/dL (2.5-4.5); SODIUM 155 mmol/L (132-148); TOTAL PROTEIN 6.4 g/dL (5.8-8.3)
[2017-06-15 13:17] LABS: TROPONIN I 0.07 ng/mL
[2017-06-15] MEDS ORDERED: Iohexol 350 MG/100 ML VIAL ONE (13:37)
--- NOTE | 2017-06-15 13:53 | RAD ---
HISTORY: Sepsis Patient COMPARISON: 02/20/2016 FINDINGS: LUNGS: No active pulmonary disease. PLEURA: No significant pleural effusion identified, no pneumothorax apparent. CARDIOVASCULAR: Moderate cardiomegaly OSSEOUS STRUCTURES: No significant abnormalities. VISUALIZED UPPER ABDOMEN: Normal. OTHER FINDINGS: None. IMPRESSION: No active disease.
[2017-06-15 14:00] LABS: INR 1.26 (0.93-1.08); PARTIAL THROMBOPLASTIN TIME 29.6 Seconds (25.1-36.5)
--- NOTE | 2017-06-15 14:06 | CT ---
PROCEDURE: CT Abdomen and Pelvis with contrast HISTORY: upper abdominal collection with feculant matter COMPARISON: None. TECHNIQUE: Contrast dose: 100 cc of Omni 350. Radiation dose: Total exam DLP = 1745 mGy-cm. This CT exam was performed using one or more of the following dose reduction techniques: Automated exposure control, adjustment of the mA and/or kV according to patient size, and/or use of iterative reconstruction technique. FINDINGS: LOWER THORAX: The gastrostomy tube is displaced out of the stomach. The tip is seen in the subcutaneous space near the midline. There is a large fluid collection to the left of midline extending laterally measuring 14 cm in with by 8 cm height by 6 cm AP. A small amount of contrast was injected into the tube which can be seen in the subcutaneous space. There is no communication with the stomach. LIVER: Unremarkable. No gross lesion or ductal dilatation. GALLBLADDER AND BILE DUCTS: Unremarkable. PANCREAS: Unremarkable. No gross lesion or ductal dilatation. SPLEEN: Unremarkable. ADRENALS: Unremarkable. No mass. KIDNEYS AND URETERS: Unremarkable. No hydronephrosis. No solid mass. VASCULATURE: Unremarkable. No aortic aneurysm. BOWEL: Unremarkable. No obstruction. No gross mural thickening. Diastasis recti is seen in the lower abdomen. A portion of the colon protrudes into this outpouching. APPENDIX: Normal appendix. PERITONEUM: Unremarkable. No free fluid. No free air. LYMPH NODES: Unremarkable. No enlarged lymph nodes. BLADDER: Unremarkable. REPRODUCTIVE: Unremarkable. BONES: No acute fracture. OTHER FINDINGS: None. IMPRESSION: The gastrostomy tube is displaced out of the stomach. The tip is seen in the subcutaneous space near the midline. There is a large fluid collection to the left of midline extending laterally measuring 14 cm in with by 8 cm height by 6 cm AP. A small amount of contrast was injected into the tube which can be seen in the subcutaneous space. There is no communication with the stomach.
[2017-06-15] MEDS: Meropenem 1 GM in Dextrose 5% In Water 100 ML IVPB SCH ×2 (15:05→15:45)
--- NOTE | 2017-06-15 15:21 | CP.PCM.CON ---
<Lynette Paez - Last Filed: 06/15/17 15:45> History of Present Illness - History of Present Illness History of Present Illness: GI Fellow PGY4 Consult Note Patient is an 82yo female with PMHx significant for CVA, vascular dementia, seizures, HTN, GERD who presented [place] the [place] from [place] for [place]. The patient is unable to provide any history, nonverbal. The patient was noted to have PEG malfunction per prison and was immediately sent to the ED for evaluation. In the ER, pt was found to have a large wound next to the PEG site, LUQ with large amount of brown stool oozing from site. Pt was also seen by surgery at bedside and CT scan was ordered. No documentation from [place] about any wound on abdominal wall and skin tear and stool. Pt was seen and evaluated at bedside in ER and CT scan. On review of prior MR, pt had a PEG exchange 09/2016. ROS: Unable to be obtained, pt nonverbal PMHx: See HPI PSHx: Multiple PEG exchanges, last performed 09/2016 FHx: Multiple members with HTN SHx: No history of tobacco, EtOH or illicit drug use, pt from prison Past Patient History - Past Social History Smoking Status: Unknown If Ever Smoked - CARDIAC Hx Cardiac Disorders: Yes Hx Hypertension: Yes Hx Pacemaker: No - NEUROLOGICAL HX Cerebrovascular Accident: Yes Hx Paralysis: Yes Hx Seizures: Yes - HEENT Hx HEENT Problems: Yes Hx Cataracts: Yes - HEMATOLOGICAL/ONCOLOGICAL Hx Blood Transfusions: No Hx Blood Transfusion Reaction: No - MUSCULOSKELETAL/RHEUMATOLOGICAL Hx Musculoskeletal Disorders: Yes (CONTRACTURES/ R HEMIPARESIS) - GASTROINTESTINAL Hx Gastrointestinal Disorders: Yes Hx Gastroesophageal Reflux: Yes - GENITOURINARY/GYNECOLOGICAL Hx Genitourinary Disorders: Yes Hx Incontinence: Yes - PSYCHIATRIC Hx Emotional Abuse: No Hx Physical Abuse: No Hx Substance Use: No - SURGICAL HISTORY Other/Comment: gastrostomy - ANESTHESIA Hx Anesthesia: Yes Hx Anesthesia Reactions: No Hx Malignant Hyperthermia: No Meds Allergies/Adverse Reactions: Allergies Allergy/AdvReac Type Severity Reaction Status Date / Time No Known Allergies Allergy Verified 06/15/17 17:28 - Medications Medications: Current Medications Meropenem 1 gm/ Dextrose 100 mls @ 100 mls/hr IVPB Q8 CLAUDIA PRN Reason: Protocol Stop: 06/24/17 13:16 Last Admin: 06/15/17 15:05 Dose: 100 mls/hr Vancomycin HCl 2 gm/ Sodium (Chloride) 500 mls @ 170 mls/hr IVPB ONCE ONE PRN Reason: Protocol Stop: 06/15/17 16:00 Physical Exam - Constitutional Appears: Unkempt, Chronically Ill Additional comments: contracted, nonverbal - Head Exam Head Exam: ATRAUMATIC, NORMAL INSPECTION, NORMOCEPHALIC - Eye Exam Eye Exam: EOMI, Normal appearance, PERRL Pupil Exam: PERRL - ENT Exam ENT Exam: Mucous Membranes Dry - Respiratory Exam Respiratory Exam: Decreased Breath Sounds - Cardiovascular Exam Cardiovascular Exam: RRR - GI/Abdominal Exam GI & Abdominal Exam: Soft Additional comments: PEG, large wound LUQ with stool coming though site - Rectal Exam Rectal Exam: Deferred - Extremities Exam Extremities exam: Positive for: normal inspection. Negative for: pedal edema - Back Exam Back exam: NORMAL INSPECTION - Neurological Exam Additional comments: nonverbal - Psychiatric Exam Psychiatric exam: Flat Affect - Skin Skin Exam: Erythema, Mottled Results - Vital Signs Recent Vital Signs: Last Vital Signs Temp 97.6 F 06/15/17 12:18 Pulse 79 06/15/17 13:37 Resp 18 06/15/17 13:37 BP 125/73 06/15/17 13:37 Pulse Ox 98 06/15/17 13:37 - Labs Result Diagrams: 06/15/17 12:30 06/15/17 12:30 Assessment & Plan - Assessment and Plan (Free Text) Assessment: This is a 82yF sent from [place] for complaints of PEG exchange due to malfunction. 1. Abdominal wall/subcutaneous abscess 2. Dislodged PEG into subcutaneous wall Plan: -Continue supportive care with IVF hydration -CT scan images were reviewed with Radiologist, PEG is dislodged in the subcutaneous wall with no clear fistula seen. Large fluid collection/abscess in subcutaneous wall including contrast for CT scan seen in the area -Recommend broad spectrum IV abx, may need I&D of fluid collection, defer to surgery -Pulled out PEG -No plan for replacement PEG with active infection near site -Recommend dobhoff for enteral feeds for at least 6 weeks, will reevaluate for possible PEG placement at that time -Will continue to follow closely <Maurice Rodriguez - Last Filed: 06/15/17 18:51> Meds - Medications Medications: Current Medications Amlodipine Besylate (Norvasc) 2.5 mg PEG QAM CLAUDIA Clopidogrel Bisulfate (Plavix) 75 mg PEG DAILY CLAUDIA Furosemide (Lasix) 40 mg IVP DAILY CLAUDIA Meropenem 1 gm/ Dextrose 100 mls @ 100 mls/hr IVPB Q8 CLAUDIA PRN Reason: Protocol Stop: 06/24/17 13:16 Last Admin: 06/15/17 15:45 Dose: 100 mls/hr Levetiracetam (Keppra 500mg Ivpb) 500 mg in 100 mls @ 400 mls/hr IVPB Q12 CLAUDIA Pantoprazole Sodium (Protonix 40mg Ivpb) 40 mg in 100 mls @ 200 mls/hr IVPB 0600 CLAUDIA Sodium Chloride (Sodium Chloride 0.45%) 1,000 mls @ 40 mls/hr IV .Q24H CLAUDIA Levothyroxine Sodium (Synthroid) 250 mcg PEG DAILY CLAUDIA Nitroglycerin (Nitro-Dur 0.2 Mg/Hr Patch) 1 patch TD QAM CLAUDIA Non-Formulary Medication (Potassium Chloride [Klor-Con]) 20 meq PEG DAILY CLAUDIA Results - Vital Signs Recent Vital Signs: Last Vital Signs Temp 97.6 F 06/15/17 12:18 Pulse 83 06/15/17 17:11 Resp 16 06/15/17 17:11 BP 114/65 06/15/17 17:11 Pulse Ox 100 06/15/17 17:11 - Labs Result Diagrams: 06/15/17 12:30 06/15/17 12:30 Labs: Laboratory Results - last 24 hr 06/15/17 18:00 pO2 30 VBG pH 7.41 VBG pCO2 64.0 H VBG HCO3 40.6 H VBG Total CO2 42.6 H VBG O2 Sat (Calc) 61.3 VBG Base Excess 13.0 H VBG Potassium 4.2 Sodium 156.0 H Chloride 119.0 H Glucose 123 H Lactate 1.6 FiO2 21.0 Venous Blood Potassium 4.2 Attending/Attestation - Attestation I have personally seen and examined this patient.: Yes I have fully participated in the care of the patient.: Yes I have reviewed all pertinent clinical information: Yes Notes (Text): 06/15/17 18:48 82 year old female with h/o dementia, failure to thrive, prison resident, s/p PEG in 10/09 now presenting with abdominal discharge/distention and PEG malfuction, found to have abdominal wall abscess on CT and dislodged PEG. 1. Buried bumper syndrome 2. Abdominal wall abscess Plan: -buried bumper identified on CT, with internal PEG bumper lodged in the abdominal wall, and contrast in the abdominal wall -PEG removed at bedside today -recommend broad spectrum antibiotics per ID -recommend Surgical eval for possible I&D -no replacement PEG possible at this time or in the near future -would recommend dobhoff feedings for the forseeable future until abdominal wall infection resolves
--- NOTE | 2017-06-15 15:33 | US ---
HISTORY: Leg pain and swelling. Evaluate for DVT PHYSICIAN(S): Ayan Ocampo MD. TECHNIQUE: Duplex sonography and color-flow Doppler with graded compression were used to evaluate the deep venous systems of both lower extremities. The exam is very limited by body habitus, edema, and the patient's inability to cooperate. FINDINGS: There appears to be somewhat localize nonocclusive thrombus in the distal right common femoral vein and proximal right femoral vein. This is likely chronic. No acute DVT is seen. The mid to distal right femoral vein and popliteal vein is patent and compressible. There is no sonographic evidence for deep venous thrombosis in the visualized segments of left lower extremity. IMPRESSION: Limited adherent nonocclusive chronic thrombus in the distal right common femoral vein and proximal right femoral vein. No acute DVT is appreciated
[2017-06-15] MEDS ORDERED: Sodium Chloride 0.9% 1,000 ML IV STA (16:10)
--- NOTE | 2017-06-15 16:31 | CP.PCM.CON ---
History of Present Illness - History of Present Illness History of Present Illness: Consult Note for Dr. Hartley: Pt is a an 82 yo female with PMH of CVA, vascular dementia, HTN, and GERD who presents to ED from [facility] for PEG tube replacement. Patient has had history multiple PEG tube replacements, the last on 09/2016. In the ER, PEG tube was found to be malfunctioning, had large wound around the insertion site, and draining brown stool. History and ROS limited due to patient's current mental status. PMHx: CVA, vascular dementia, HTN, and GERD PSHx: PEG tube insertion with multiple replacements FHx: HTN SHx: No history of tobacco, EtOH or illicit drug use; [facility] patient All: NKDA PMD: Drew Review of Systems - Review of Systems Review of Systems: 12 ROS limited due to patient's mental status. Past Patient History - Past Social History Smoking Status: Unknown If Ever Smoked - CARDIAC Hx Cardiac Disorders: Yes Hx Hypertension: Yes Hx Pacemaker: No - NEUROLOGICAL HX Cerebrovascular Accident: Yes Hx Paralysis: Yes Hx Seizures: Yes - HEENT Hx HEENT Problems: Yes Hx Cataracts: Yes - HEMATOLOGICAL/ONCOLOGICAL Hx Blood Transfusions: No Hx Blood Transfusion Reaction: No - MUSCULOSKELETAL/RHEUMATOLOGICAL Hx Musculoskeletal Disorders: Yes (CONTRACTURES/ R HEMIPARESIS) - GASTROINTESTINAL Hx Gastrointestinal Disorders: Yes Hx Gastroesophageal Reflux: Yes - GENITOURINARY/GYNECOLOGICAL Hx Genitourinary Disorders: Yes Hx Incontinence: Yes - PSYCHIATRIC Hx Emotional Abuse: No Hx Physical Abuse: No Hx Substance Use: No - SURGICAL HISTORY Other/Comment: gastrostomy - ANESTHESIA Hx Anesthesia: Yes Hx Anesthesia Reactions: No Hx Malignant Hyperthermia: No Meds Allergies/Adverse Reactions: Allergies Allergy/AdvReac Type Severity Reaction Status Date / Time No Known Allergies Allergy Verified 02/17/16 14:29 - Medications Medications: Current Medications Meropenem 1 gm/ Dextrose 100 mls @ 100 mls/hr IVPB Q8 [facility] PRN Reason: Protocol Stop: 06/24/17 13:16 Last Admin: 06/15/17 15:45 Dose: 100 mls/hr Sodium Chloride (Sodium Chloride 0.9%) 1,000 mls @ 100 mls/hr IV .Q10H STA Stop: 06/16/17 02:09 Physical Exam - Constitutional Appears: No Acute Distress - Head Exam Head Exam: ATRAUMATIC, NORMAL INSPECTION, NORMOCEPHALIC - Eye Exam Eye Exam: EOMI, PERRL - ENT Exam ENT Exam: Mucous Membranes Moist, Normal Exam - Neck Exam Neck exam: Positive for: Full Rom. Negative for: Lymphadenopathy, Thyromegaly - Respiratory Exam Respiratory Exam: Clear to Auscultation Bilateral. absent: Rales, Rhonchi, Wheezes - Cardiovascular Exam Cardiovascular Exam: RRR, +S1, +S2. absent: Diastolic murmur, Gallop, Rubs, Systolic Murmur - GI/Abdominal Exam GI & Abdominal Exam: Distended, Soft. absent: Guarding, Rebound Additional comments: PEG tube insertion site in epigastric region with surrounding erythema from epigastric region to left lateral flank. Purulent fecal matter draining from PEG tube site. Multiple, purulent skin ulcerations on anterior abdomen. - Extremities Exam Extremities exam: Positive for: pedal edema - Back Exam Back exam: NORMAL INSPECTION - Neurological Exam Neurological exam: Alert, Oriented x3, Reflexes Normal - Psychiatric Exam Psychiatric exam: Normal Affect, Normal Mood - Skin Additional comments: See abdominal exam for skin findings. Results - Vital Signs Recent Vital Signs: Last Vital Signs Temp 97.6 F 06/15/17 12:18 Pulse 76 06/15/17 15:21 Resp 16 06/15/17 15:21 BP 122/61 06/15/17 15:21 Pulse Ox 100 06/15/17 15:21 - Labs Result Diagrams: 06/15/17 12:30 06/15/17 12:30 Assessment & Plan - Assessment and Plan (Free Text) Assessment: 82 yo female with PMH of CVA, vascular dementia, HTN, and GERD admitted due PEG tube malfunction and abdominal wall abscess Plan: - Abd CT showed gastrostomy tube displaced out of stomach, tip in subcutaneous space near midline. Large fluid collection left of midline [id number]. Non communication with stomach. - Manual drainage at bedside yielded ~1 L purulent material - Possible OR for further I&D - F/u cultures - IV Abx per ID - IVF - GI consulted: pulled PEG, consider Dobhoff D/w Dr. Naeem Meadows, PGY1
[2017-06-15 18:06] LABS: VENOUS BLOOD PH 7.41 (7.32-7.43)
[2017-06-15] MEDS ORDERED: Sodium Chloride 0.45% 1,000 ML IV SCH (19:00)
[2017-06-15] MEDS ORDERED: Influenza Vaccine 60 mcg/0.5 mL SYR (4YR UP) IM ONE (20:51)
[2017-06-15] MEDS ORDERED: Pneumococcal 23-Valent Vaccine IM ONE (20:51)
[2017-06-15] MEDS: levETIRAcetam 500mg IVPB 500 MG/100 ML BAG IVPB SCH (23:51)
--- NOTE | 2017-06-15 23:55 | CON ---
DATE: 06/15/2017 The patient is in the emergency room. CHIEF COMPLAINT: Abdominal wall infection and PEG tube placement x1 day. HISTORY OF PRESENT ILLNESS: This is an 82-[facility]-old [facility] patient who was [facility] from the [facility] because of a PEG tube infection. The patient with past medical history of cerebrovascular accident, bedridden, paralyzed with seizures, nonverbal, hypertensive, history of systolic congestive heart failure, history of cerebrovascular accident, history of cataract, has a PEG tube, who is admitted now with PEG tube infection. REVIEW OF SYSTEMS: Reveals the patient does not verbalize, there has been no fevers reported. No chills reported and no diarrhea or constipation. PAST MEDICAL HISTORY: Significant for coronary artery disease, cerebrovascular accident, systolic congestive heart failure, hypertension, paralysis, seizures, bedridden, cataract. PAST SURGICAL HISTORY: Significant for PEG tube placement. ALLERGIES: THE PATIENT HAS NO KNOWN ALLERGIES. MEDICATIONS: At the [facility] are reviewed and include levothyroxine, potassium, Keppra, vitamins, Lasix, Plavix, Norvasc, and Tylenol. PHYSICAL EXAMINATION: GENERAL: The patient is in bed, appearing chronically ill, debilitated, nonverbal. VITAL SIGNS: With a temperature of 98, heart rate of 88, respiratory rate of 18, blood pressure is 130/70. HEENT: Examination of HEENT is unremarkable. NECK: Supple. LUNGS: Decreased breath sounds. HEART: Normal S1, S2. ABDOMEN: Soft. There is erythema and appears to have an abscess with drainage also in one area with purulent material and foul odorous. LABORATORY EXAMINATION: White count of 9.8, hemoglobin of 9, platelets of 347. Chemistries not available at this time, and no other information is available. Dr. Karen Kim's ER chart is the only information that is available at this time, which is reviewed. The initial draft is available. ASSESSMENT/PLAN: An 82-year-old female, [facility] patient, with cerebrovascular accident, coronary artery disease, hypertension, paralysis, cataract, and seizures, now admitted with an abdominal wall cellulitis and abscess formation. We will start the patient on vancomycin and meropenem. The patient is scheduled for a CAT scan, and wound cultures and blood cultures will be ordered. A surgical consult is requested for possible drainage of the abdominal abscess, and GI consult is also requested. Pending stewart culture and initial chemistry results are still pending. We will give one dose of vancomycin at 2 g and start the patient on meropenem pending initial workup results. Case was discussed with Dr. Oswaldo Russell. Momo Mckenzie MD
[2017-06-16] MEDS: Meropenem 1 GM in Dextrose 5% In Water 100 ML IVPB SCH ×4 (00:19→22:17)
--- NOTE | 2017-06-16 04:51 | HP ---
HISTORY OF PRESENT ILLNESS: I was called this morning from [facility] at [place] about Kelly Hernandez, her PEG tube had fallen out a week ago and they are waiting for PEG tube placement. They were supposed to have her sent to the hospital today, but they could not get transportation. They told me that there was irritation around the PEG tube site and that some acid was burning that area, so I was not that concerned, but when I saw her in the emergency room, the entire abdomen is almost on the left side, completely inflamed with ulcers and ooze coming from it. PAST MEDICAL HISTORY: CVA, hypertension, seizures, GERD, PEG tube, CHF. I have been seeing her from many years at [facility] in [place]. She is nonverbal. Her eyes are open. She has hypertension, paralysis from a CVA, seizure history, cataracts. She has contracted right weakness from the stroke, GERD, incontinence, gastrotomy tube. FAMILY HISTORY: Hypertension in her family. SOCIAL HISTORY: Nonsmoker. Nondrinker. No drugs. ALLERGIES: NO KNOWN DRUG ALLERGIES. MEDICATIONS: She takes multivitamins, Keppra for the seizures, Nitro-Dur, Tylenol, Norvasc for blood pressure, Plavix, Lasix, levothyroxine, Protonix and potassium. REVIEW OF SYSTEMS: She is nonverbal, cannot give any review of systems, but her belly has multiple small ulcers over 20-inch area on the left side leading from the gastrostomy tube. PHYSICAL EXAMINATION: GENERAL: She looks like she is awake, but nonverbal. VITAL SIGNS: She has 98.9 temperature, 83 pulse, 18 respiratory rate, 130/71 blood pressure, and 98% O2 saturation on room air. HEENT: Atraumatic and normocephalic. Extraocular muscles are intact. Pupils are equal and reactive to light. Throat is dry. NECK: Normal range of motion. HEART: Regular rate. Normal S1 and S2. LUNGS: Decreased breath sounds, but clear to auscultation, poor inspiration. ABDOMEN: There is a 30 x 12 cm induration area, epigastric area across the midline that extends underneath the left breast. There is a fluctuation, oozing with warmth. There is also 4 x 1.5 cm area of superficial black ulceration. G-tube in place, but out. Rest of the abdomen is nontender and you could express fluid from the ulcers. EXTREMITIES: The left lower extremity has +3/4 pitting edema and the right extremity has +1/4 pitting edema. NEUROLOGIC: Her eyes are open. Cranial nerves II through XII grossly intact. Nonverbal. She is alert. SKIN: Bad across the abdomen. LABORATORY DATA: She had multiple tests. She has 155 sodium, potassium 4, BUN 31, creatinine 0.7, GFR is greater than 60, sugar is 128, calcium is 9.1, phosphorus 3.2, magnesium 2.6, total bili is 0.5. AST is 48, ALT is 41, alk phos is 84. Lactate dehydrogenase is 600. Total creatine kinase is 46. Troponin I is 0.07, which is indeterminate range. She has 533 BNP. Total protein 6.4, albumin is 3, and 7.41 blood gas. INR is 1.26. White count 9.8, hemoglobin 9.4, hematocrit 30.8 and platelets of 347. She had a chest x-ray that showed no active disease. She had a CAT scan of the abdomen and pelvis which showed the gastrostomy tube which was placed out of the stomach, but tip is seen in a subcutaneous space near the midline. There was a large fluid collection of the left, to the left of the midline, extending laterally, measuring 14 cm with 18 cm height x 6 cm . A small amount of contrast was injected into the tube, which can be seen in the subcutaneous space. There was no communication with the stomach. The extremity ultrasound was negative. She is going to have consult with Infectious Disease for antibiotics, Surgery for possible surgical intervention, and GI to replace the feeding tube. She will be on IV fluids, Keppra, Lasix, Merrem IV, nitroglycerin, Norvasc, Plavix, potassium, Protonix, levothyroxine and vancomycin IV. We will check her labs tomorrow. She has a bad abdominal cellulitis, sepsis and multiple ulcers and G-tube malfunction. Oswaldo Russell DO [facility]
[2017-06-16] MEDS: Pantoprazole 40mg/100ml IVPB 40 MG/100 ML BAG IVPB SCH (06:31)
[2017-06-16 07:11] LABS: HEMATOCRIT 28.1 % (36.0-48.0); MEAN CELL VOLUME 92.4 fl (80.0-105.0); MEAN CORPUSCULAR HEMOGLOBIN 27.3 pg (25.0-35.0); MEAN CORPUSCULAR HGB CONC 29.5 g/dl (31.0-37.0); MEAN PLATELET VOLUME 9.7 fl (7.0-11.0); RED CELL DISTRIBUTION WIDTH 15.6 % (11.5-14.5); WHITE BLOOD COUNT 6.9 10^3/ul (4.5-11.0)
[2017-06-16] MEDS ORDERED: Levothyroxine 125 MCG TAB PEG SCH (07:30)
--- NOTE | 2017-06-16 07:43 | CARD ---
APPROVED REPORT EKG Measurement Heart [id number] <Conclusion> Normal sinus rhythm LAD RVCD NSSTW changes
[2017-06-16 07:47] LABS: SODIUM 157 mmol/L (132-148)
[2017-06-16 07:48] LABS: ALB/GLOB RATIO 0.9 (1.1-1.8); ALKALINE PHOSPHATASE 72 U/L (38-126); ALT/SGPT 36 U/L (7-56); AST/SGOT 26 U/L (14-36); BILIRUBIN,TOTAL 0.4 mg/dL (0.2-1.3); BLOOD UREA NITROGEN 25 mg/dL (7-21); CALCIUM 8.6 mg/dL (8.4-10.5); CARBON DIOXIDE 34 mmol/L (21-33); CHLORIDE 116 mmol/L (98-107); GFR AFRICAN-AMERICAN > 60; GLUCOSE,RANDOM 88 mg/dL (70-110); POTASSIUM 3.6 mmol/L (3.6-5.0); TOTAL PROTEIN 5.4 g/dL (5.8-8.3)
--- NOTE | 2017-06-16 08:02 | CP.PCM.PN ---
<Bernard Villeda - Last Filed: 06/16/17 13:09> Subjective - Date & Time of Evaluation Date of Evaluation: 06/16/17 Time of Evaluation: 07:00 - Subjective Subjective: ] Bernard Villeda D.O. PGY-2, GI Progress Note 82 year old female with a PMH significant for CVA with significant disability, vascular dementia, seizures, HTN, and GERD who presented to [facility] with malfunctioning PEG. Patient was seen and examined at bedside with nursing staff. No acute events overnight. PEG tube was found to be in the subcutaneous tissues yesterday and was removed. Unable to obtain information from patient at this time but she appears comfortable. Objective - Vital Signs/Intake and Output Vital Signs (last 24 hours): Temp Pulse Resp BP Pulse Ox 97.6 F 83 16 114/65 100 06/15/17 20:14 06/15/17 20:14 06/15/17 20:14 06/15/17 20:14 06/15/17 17:11 Intake and Output: 06/16/17 06/16/17 06:59 18:59 Intake Total 0 Balance 0 - Medications Medications: Current Medications Amlodipine Besylate (Norvasc) 2.5 mg PEG QAM [facility] Clopidogrel Bisulfate (Plavix) 75 mg PEG DAILY [facility] Furosemide (Lasix) 40 mg IVP DAILY [facility] Meropenem 1 gm/ Dextrose 100 mls @ 100 mls/hr IVPB Q8 [facility] PRN Reason: Protocol Stop: 06/24/17 13:16 Last Admin: 06/16/17 07:06 Dose: 100 mls/hr Levetiracetam (Keppra 500mg Ivpb) 500 mg in 100 mls @ 400 mls/hr IVPB Q12 [facility] Last Admin: 06/15/17 23:51 Dose: 400 mls/hr Pantoprazole Sodium (Protonix 40mg Ivpb) 40 mg in 100 mls @ 200 mls/hr IVPB 0600 [facility] Last Admin: 06/16/17 06:31 Dose: 200 mls/hr Sodium Chloride (Sodium Chloride 0.45%) 1,000 mls @ 40 mls/hr IV .Q24H [facility] Last Admin: 06/15/17 19:42 Dose: 40 mls/hr Levothyroxine Sodium (Synthroid) 0.25 mcg IVP DAILY [facility] Nitroglycerin (Nitro-Dur 0.2 Mg/Hr Patch) 1 patch TD QAM [facility] Potassium Chloride (Potassium Chloride Oral Soln) 20 meq PEG DAILY [facility] - Labs Labs: 06/16/17 06:45 06/16/17 06:45 PT 13.8 SECONDS (9.4-12.5) H 06/15/17 13:34 INR 1.26 (0.93-1.08) H 06/15/17 13:34 APTT 29.6 Seconds (25.1-36.5) 06/15/17 13:34 - Constitutional Appears: Non-toxic, No Acute Distress - Head Exam Head Exam: ATRAUMATIC, NORMOCEPHALIC - Eye Exam Eye Exam: absent: Conjunctival injection, Scleral icterus - ENT Exam ENT Exam: Mucous Membranes Moist - Respiratory Exam Respiratory Exam: absent: Accessory Muscle Use, Decreased Breath Sounds - Cardiovascular Exam Cardiovascular Exam: RRR, +S1, +S2 - GI/Abdominal Exam GI & Abdominal Exam: Soft Additional comments: large upper abdominal wound with stool drainage, discoloration, slightly malodorous - Extremities Exam Extremities Exam: absent: Joint Swelling - Neurological Exam Neurological Exam: Alert, Awake Additional comments: nonverbal - Skin Skin Exam: Warm Assessment and Plan - Assessment and Plan (Free Text) Assessment: 82 year old female with a PMH significant for CVA with significant disability, vascular dementia, seizures, HTN, and GERD who presented to [facility] with malfunctioning PEG, found to have a PEG in subcutaneous tissue and a large upper abdominal wound with stool drainage Plan: 1. Buried bumper syndrome 2. Abdominal wall abscess Continue supportive care with IVF hydration CT abd/pelvis reviewed with radiologist yesterday and PEG was removed Discussed with surgery team, large amount of fluid/pus expressed yesterday ~ 500ml-1L Possible plan for OR for I&D of wound ID consulted, recs reviewed, continue empiric abx with merrem Day 2 No PEG replacement at this time Recommend for Dobhoff placement for enteral feeding (pending surgical intervention) to allow full resolution of infection Discussed with fellow and attending physician We will sign off at this time. No further recommendations from GI perspective. She will need to have at least 6 weeks of feeding with Dobhoff to allow for full resolution of her abdominal wall abscess at which time she can be evaluated for new PEG insertion. Thank you for the pleasure of participating in the care of this patient. <Vasyl Bender MD - Last Filed: 06/16/17 14:53> Objective - Vital Signs/Intake and Output Vital Signs (last 24 hours): Temp Pulse Resp BP Pulse Ox 97.5 F L 62 20 114/62 100 06/16/17 07:30 06/16/17 07:30 06/16/17 07:30 06/16/17 11:40 06/16/17 07:30 Intake and Output: 06/16/17 06/16/17 06:59 18:59 Intake Total 0 Balance 0 - Medications Medications: Current Medications Amlodipine Besylate (Norvasc) 2.5 mg PEG QAM [facility] Last Admin: 06/16/17 10:00 Dose: Not Given Clopidogrel Bisulfate (Plavix) 75 mg PEG DAILY [facility] Last Admin: 06/16/17 10:00 Dose: Not Given Furosemide (Lasix) 40 mg IVP DAILY [facility] Last Admin: 06/16/17 11:40 Dose: 40 mg Meropenem 1 gm/ Dextrose 100 mls @ 100 mls/hr IVPB Q8 [facility] PRN Reason: Protocol Stop: 06/24/17 13:16 Last Admin: 06/16/17 07:06 Dose: 100 mls/hr Levetiracetam (Keppra 500mg Ivpb) 500 mg in 100 mls @ 400 mls/hr IVPB Q12 [facility] Last Admin: 06/16/17 11:38 Dose: 400 mls/hr Pantoprazole Sodium (Protonix 40mg Ivpb) 40 mg in 100 mls @ 200 mls/hr IVPB 0600 [facility] Last Admin: 06/16/17 06:31 Dose: 200 mls/hr Dextrose (Dextrose 5% In Water 1000 Ml) 1,000 mls @ 100 mls/hr IV .Q10H [facility] Last Admin: 06/16/17 11:45 Dose: 100 mls/hr Levothyroxine Sodium (Synthroid) 125 mcg IVP DAILY [facility] Nitroglycerin (Nitro-Dur 0.2 Mg/Hr Patch) 1 patch TD QAM [facility] Last Admin: 06/16/17 12:51 Dose: 1 patch Potassium Chloride (Potassium Chloride Oral Soln) 20 meq PEG DAILY [facility] Last Admin: 06/16/17 10:00 Dose: Not Given - Labs Labs: 06/16/17 06:45 06/16/17 06:45 PT 13.8 SECONDS (9.4-12.5) H 06/15/17 13:34 INR 1.26 (0.93-1.08) H 06/15/17 13:34 APTT 29.6 Seconds (25.1-36.5) 06/15/17 13:34 Attending/Attestation - Attestation I have personally seen and examined this patient.: Yes I have fully participated in the care of the patient.: Yes I have reviewed all pertinent clinical information, including history, physical exam and plan: Yes Notes (Text): 06/16/17 14:36 Seen at bedside on GI rounds this am. This is a 82 year old female with a PMH significant for CVA with significant disability, vascular dementia, seizures, HTN, and GERD who presented to [facility] with malfunctioning PEG, found to have a PEG in subcutaneous tissue and a large upper abdominal wound with stool drainage. S/P PEG removal. On physical exam- pus and feces expressed from PEG site. No other Gi intervention required. Recommend tube feeds for nutrition. Patient may benefit from surgical intervention for abdominal wound. Will sign off. Thank you for letting us participate in the care of your patient. Thank you for the pleasure of participating in the care of this patient.
[2017-06-16] MEDS ORDERED: Levothyroxine 100 mcg (0.1 mg) Inj IVP SCH ×2 (10:00→11:50)
[2017-06-16] MEDS ORDERED: Levothyroxine 200 MCG TAB PEG SCH (10:00)
[2017-06-16] MEDS: Potassium Chloride 20 mEq/15 ml LIQ UD PEG SCH (10:00)
[2017-06-16] MEDS ORDERED: POTASSIUM CHLORIDE 20 MEQ PEG SCH (10:00)
[2017-06-16] MEDS: levETIRAcetam 500mg IVPB 500 MG/100 ML BAG IVPB SCH ×2 (11:38→21:42)
[2017-06-16] MEDS: Nitroglycerin 0.2 mg/hr Top Patch TD SCH (12:51)
[2017-06-16 13:07] LABS: URINE BILIRUBIN NEGATIVE (NEGATIVE); URINE BLOOD NEGATIVE (NEGATIVE); URINE GLUCOSE (UA) NEGATIVE (NEGATIVE); URINE KETONE NEGATIVE (NEGATIVE); URINE LEUKOCYTE ESTERASE NEGATIVE Leu/uL (NEGATIVE); URINE PROTEIN 30 mg/dL (<30 mg/dL); URINE UROBILINOGEN 0.2 E.U./dL (<1 E.U./dL)
[2017-06-16 13:13] LABS: URINE APPEARANCE CLEAR (CLEAR); URINE COLOR YELLOW (YELLOW)
[2017-06-16 13:15] LABS: URINE BACTERIA FEW (NEG); URINE EPITHELIAL CELLS 0 - 2 /hpf (0-5); URINE RBC 0 - 2 /hpf (0-2); URINE WBC 0 - 2 /hpf (0-6)
[2017-06-16] MEDS ORDERED: Succinylcholine 200 mg/10 ml Inj IV ONE (14:59)
[2017-06-16] MEDS ORDERED: Etomidate 20 mg/10ml Inj IV ONE (15:00)
--- NOTE | 2017-06-16 15:54 | CP.PCM.CON ---
History of Present Illness - History of Present Illness History of Present Illness: Initial Nephrology Consultation: Assessment: critical Hypernatremia due to dehydration HTN, CVA with left hemiparesis and contractures, dementia, NH resident, chronic leg edema ? due to hypoalbuminemia. also has hx of CHF s/p dislodgement feeding tube and abdomen wall cellulitis and abdominal fluid collection/abscess with staph aureus Plan will start D5W @ 100 ml/hr to help with hypernatremia. once serum Na close to normal then can switch to D5/0.45% saline or 0.45% saline alone supplement electrolytes as indicated Hypertension control with meds as ordered. Monitor Input/Output, daily weights and renal function and electrolytes with basic metabolic panel surgery and ID following Further work up/management as per primary team Thanks for allowing me to participate in care of your patient. Will follow patient with you. Please call if any Qs Dr Sonu Doll Office: [phone] Chief Complaint; Unable to obtain from pt reason for consult: Hypernatremia HPI: Pt is a 82 y/o F with hx of HTN, CVA with left hemiparesis and contractures , dementia, NH resident, chronic leg edema, had dislodged feeding tube and here with cellulitis and abdominal fluid collection/abscess. also found to have hypernatremia hence renal consult pt is non-communicative and unable to obtain any ROS from her Physical Examination: General Appearance: in no acute respiratory distress, ill appearing. Vitals reviewed and noted as below Head; Atraumatic, normocephalic ENT: unable to examine as pt not following commands EYES: Pupils are equal, round and reactive to light accommodation. Sclera is anicteric. Neck; supple no lymphadenopathy, no thyromegaly or bruit Lungs: Normal respiratory rate/effort. Breath sounds bilateral equal and clear anteriorly Heart: Normal rate. s1s2 normal. No rub or gallop. Extremities: 2+ edema. No varicose veins Neurological: Patient is non-communicative, left hemiparesis and contractures Skin: Warm and dry. Normal turgor. No rash. Palpitation: Normal elasticity for age Abdomen: Abdomen is soft. Bowel sounds +. There is upper abdomen redness/skin necrosis and drainage Psych: unable MSK: no joint tenderness or swelling. : kidney or bladder not palpable. she is incontinent Labs/imaging/EKG reviewed. Past medical history, past surgical history, family history, social history, allergy reviewed and noted as below Family hx: no hx of CKD. Rest non-contributory echo in past had showed normal LVEF Past Patient History - Past Social History Smoking Status: Unknown If Ever Smoked - CARDIAC Hx Cardiac Disorders: Yes ([place]) Hx Hypertension: Yes Hx Pacemaker: No Hx Peripheral Edema: Yes - PULMONARY Hx Respiratory Disorders: Yes Hx Pneumonia: Yes - NEUROLOGICAL Hx Neurological Disorder: Yes (RIGHT HEMIPARESIS) HX Cerebrovascular Accident: Yes Hx Seizures: Yes - HEENT Hx HEENT Problems: Yes Hx Cataracts: Yes - RENAL Hx Chronic Kidney Disease: No - ENDOCRINE/METABOLIC Hx Endocrine Disorders: Yes Hx Hypothyroidism: Yes - HEMATOLOGICAL/ONCOLOGICAL Hx Blood Transfusions: No Hx Blood Transfusion Reaction: No - INTEGUMENTARY Hx Dermatological Problems: Yes Other/Comment: 1. SACRAL PRESSURE ULCER STAGE 2. 2. MID UPPER ABDOMINAL AREA WITH SKIN EXCORATION.GT MALFUNCTION.SKIN TO LEFT UPPER ABDOMINAL AREA HAS EXTENSIVE DARKENED SKIN EXCORATION WITH DRY SMALL WOUND OPENING. COPIOUS BLK DRAINAGE COMING OUT FR. INERTION SITE. - MUSCULOSKELETAL/RHEUMATOLOGICAL Hx Musculoskeletal Disorders: Yes (CONTRACTURES/ R HEMIPARESIS) Hx Falls: (UNKNOWN) - GASTROINTESTINAL Hx Gastrointestinal Disorders: Yes Hx Gastroesophageal Reflux: Yes HX Swallowing Problems: Yes - GENITOURINARY/GYNECOLOGICAL Hx Genitourinary Disorders: Yes Hx Incontinence: Yes - PSYCHIATRIC Hx Emotional Abuse: No Hx Physical Abuse: No Hx Substance Use: No (UNKNOWN) - SURGICAL HISTORY Hx Surgeries: Yes - ANESTHESIA Hx Anesthesia Reactions: No Hx Malignant Hyperthermia: No Meds Allergies/Adverse Reactions: Allergies Allergy/AdvReac Type Severity Reaction Status Date / Time No Known Allergies Allergy Verified 06/15/17 17:28 - Medications Medications: Current Medications Amlodipine Besylate (Norvasc) 2.5 mg PEG QAM [facility] Last Admin: 06/16/17 10:00 Dose: Not Given Clopidogrel Bisulfate (Plavix) 75 mg PEG DAILY [facility] Last Admin: 06/16/17 10:00 Dose: Not Given Furosemide (Lasix) 40 mg IVP DAILY [facility] Last Admin: 06/16/17 11:40 Dose: 40 mg Meropenem 1 gm/ Dextrose 100 mls @ 100 mls/hr IVPB Q8 [facility] PRN Reason: Protocol Stop: 06/24/17 13:16 Last Admin: 06/16/17 07:06 Dose: 100 mls/hr Levetiracetam (Keppra 500mg Ivpb) 500 mg in 100 mls @ 400 mls/hr IVPB Q12 [facility] Last Admin: 06/16/17 11:38 Dose: 400 mls/hr Pantoprazole Sodium (Protonix 40mg Ivpb) 40 mg in 100 mls @ 200 mls/hr IVPB 0600 [facility] Last Admin: 06/16/17 06:31 Dose: 200 mls/hr Dextrose (Dextrose 5% In Water 1000 Ml) 1,000 mls @ 100 mls/hr IV .Q10H [facility] Last Admin: 06/16/17 11:45 Dose: 100 mls/hr Levothyroxine Sodium (Synthroid) 125 mcg IVP DAILY [facility] Nitroglycerin (Nitro-Dur 0.2 Mg/Hr Patch) 1 patch TD QAM [facility] Last Admin: 06/16/17 12:51 Dose: 1 patch Potassium Chloride (Potassium Chloride Oral Soln) 20 meq PEG DAILY [facility] Last Admin: 06/16/17 10:00 Dose: Not Given Results - Vital Signs Recent Vital Signs: Last Vital Signs Temp 97.8 F 06/16/17 14:35 Pulse 72 06/16/17 14:35 Resp 16 06/16/17 14:35 BP 113/64 06/16/17 14:35 Pulse Ox 100 06/16/17 14:35 - Labs Result Diagrams: 06/16/17 06:45 06/16/17 06:45 Labs: Laboratory Results - last 24 hr 06/15/17 06/16/17 06/16/17 18:00 06:45 06:45 WBC 6.9 D RBC 3.04 L Hgb 8.3 L Hct 28.1 L MCV 92.4 MCH 27.3 MCHC 29.5 L RDW 15.6 H Plt Count 301 MPV 9.7 pO2 30 VBG pH 7.41 VBG pCO2 64.0 H VBG HCO3 40.6 H VBG Total CO2 42.6 H VBG O2 Sat (Calc) 61.3 VBG Base Excess 13.0 H VBG Potassium 4.2 Sodium 156.0 H 157 H* Chloride 119.0 H 116 H Glucose 123 H Lactate 1.6 FiO2 21.0 Potassium 3.6 Carbon Dioxide 34 H Anion Gap 10 BUN 25 H Creatinine 0.6 L Est GFR ( Amer) > 60 Est GFR (Non-Af Amer) > 60 Random Glucose 88 Calcium 8.6 Total Bilirubin 0.4 AST 26 ALT 36 Alkaline Phosphatase 72 Total Protein 5.4 L Albumin 2.5 L Globulin 2.9 Albumin/Globulin Ratio 0.9 L Venous Blood Potassium 4.2 Urine Color Urine Appearance Urine pH Ur Specific [place] Urine Protein Urine Glucose (UA) Urine Ketones Urine Blood Urine Nitrate Urine Bilirubin Urine Urobilinogen Ur Leukocyte Esterase Urine RBC Urine WBC Ur Epithelial Cells Urine Bacteria 06/16/17 13:00 WBC RBC Hgb Hct MCV MCH MCHC RDW Plt Count MPV pO2 VBG pH VBG pCO2 VBG HCO3 VBG Total CO2 VBG O2 Sat (Calc) VBG Base Excess VBG Potassium Sodium Chloride Glucose Lactate FiO2 Potassium Carbon Dioxide Anion Gap BUN Creatinine Est GFR ( Amer) Est GFR (Non-Af Amer) Random Glucose Calcium Total Bilirubin AST ALT Alkaline Phosphatase Total Protein Albumin Globulin Albumin/Globulin Ratio Venous Blood Potassium Urine Color Yellow Urine Appearance Clear Urine pH 6.0 Ur Specific [place] 1.020 Urine Protein 30 H Urine Glucose (UA) Negative Urine Ketones Negative Urine Blood Negative Urine Nitrate Negative Urine Bilirubin Negative Urine Urobilinogen 0.2 Ur Leukocyte Esterase Negative Urine RBC 0 - 2 Urine WBC 0 - 2 Ur Epithelial Cells 0 - 2 Urine Bacteria Few
--- NOTE | 2017-06-16 16:28 | PCM.SURG1 ---
Surgeon's Initial Post Op Note - Surgeon's Notes Surgeon: Dr. Hartley Gamewell Operator: Dr. Kamara, Dr. Garcia Type of Anesthesia: General LMA Pre-Operative Diagnosis: Abdominal Wall Abscess Operative Findings: See operative note Post-Operative Diagnosis: Abdominal Wall Abscess Operation Performed: Incision and drainage and wide debribement of abdominal wall abscess Specimen/Specimens Removed: Skin Estimated Blood Loss: EBL {In ML}: 400 Blood Products Given: N/A Drains Used: No Drains Post-Op Condition: Fair Date of Surgery/Procedure: 06/16/17 Time of Surgery/Procedure: 16:27
[2017-06-16] MEDS ORDERED: Lactated Ringer's 1,000 ML IV SCH (16:30)
[2017-06-16] MEDS ORDERED: HYDROmorphone 0.5 mg/0.5 ml ISec IVP PRN ×2 (16:30→16:31)
[2017-06-16 16:57] LABS: BASO # 0.03 K/mm3 (0.0-2.0); BASO % 0.4 % (0.0-3.0); EOS # 0.3 (0.0-0.7); EOS % 3.2 % (1.5-5.0); GRAN # 5.98 (1.4-6.5); GRAN % 73.8 % (50.0-68.0); HEMATOCRIT 31.7 % (36.0-48.0); LYMPH # 1.1 (1.2-3.4); LYMPH % 14.1 % (22.0-35.0); MEAN CELL VOLUME 93.8 fl (80.0-105.0); MEAN CORPUSCULAR HEMOGLOBIN 27.8 pg (25.0-35.0); MEAN CORPUSCULAR HGB CONC 29.7 g/dl (31.0-37.0); MEAN PLATELET VOLUME 9.2 fl (7.0-11.0); MONO # 0.7 (0.1-0.6); MONO % 8.5 % (1.0-6.0); RED CELL DISTRIBUTION WIDTH 15.6 % (11.5-14.5); WHITE BLOOD COUNT 8.1 10^3/ul (4.5-11.0)
[2017-06-16 17:07] LABS: ALB/GLOB RATIO 0.8 (1.1-1.8); ALKALINE PHOSPHATASE 81 U/L (38-126); ALT/SGPT 34 U/L (7-56); AST/SGOT 24 U/L (14-36); BILIRUBIN,TOTAL 0.5 mg/dL (0.2-1.3); BLOOD UREA NITROGEN 23 mg/dL (7-21); CALCIUM 8.8 mg/dL (8.4-10.5); CARBON DIOXIDE 34 mmol/L (21-33); CHLORIDE 114 mmol/L (98-107); GFR AFRICAN-AMERICAN > 60; GLUCOSE,RANDOM 143 mg/dL (70-110); POTASSIUM 3.8 mmol/L (3.6-5.0); SODIUM 155 mmol/L (132-148); TOTAL PROTEIN 6.1 g/dL (5.8-8.3)
--- NOTE | 2017-06-16 22:43 | CP.PCM.PN ---
Subjective - Date & Time of Evaluation Date of Evaluation: 06/16/17 Time of Evaluation: 12:05 - Subjective Subjective: Comfortable, no fevers. Objective - Vital Signs/Intake and Output Vital Signs (last 24 hours): Temp Pulse Resp BP Pulse Ox 97.8 F 97 H 15 108/66 99 06/16/17 17:25 06/16/17 17:25 06/16/17 17:25 06/16/17 17:25 06/16/17 17:25 - Medications Medications: Current Medications Amlodipine Besylate (Norvasc) 2.5 mg PEG QAM [facility] Last Admin: 06/16/17 10:00 Dose: Not Given Clopidogrel Bisulfate (Plavix) 75 mg PEG DAILY [facility] Last Admin: 06/16/17 10:00 Dose: Not Given Furosemide (Lasix) 40 mg IVP DAILY [facility] Last Admin: 06/16/17 11:40 Dose: 40 mg Hydromorphone HCl (Dilaudid) 0.5 mg IVP Q15M PRN PRN Reason: Pain, moderate (4-7) Stop: 06/17/17 16:31 Hydromorphone HCl (Dilaudid) 0.5 mg IVP Q4H PRN PRN Reason: Pain, moderate (4-7) Last Admin: 06/16/17 21:17 Dose: 0.5 mg Meropenem 1 gm/ Dextrose 100 mls @ 100 mls/hr IVPB Q8 [facility] PRN Reason: Protocol Stop: 06/24/17 13:16 Last Admin: 06/16/17 22:17 Dose: 100 mls/hr Levetiracetam (Keppra 500mg Ivpb) 500 mg in 100 mls @ 400 mls/hr IVPB Q12 [facility] Last Admin: 06/16/17 21:42 Dose: 400 mls/hr Pantoprazole Sodium (Protonix 40mg Ivpb) 40 mg in 100 mls @ 200 mls/hr IVPB 0600 [facility] Last Admin: 06/16/17 06:31 Dose: 200 mls/hr Dextrose (Dextrose 5% In Water 1000 Ml) 1,000 mls @ 100 mls/hr IV .Q10H [facility] Last Admin: 06/16/17 11:45 Dose: 100 mls/hr Levothyroxine Sodium (Synthroid) 125 mcg IVP DAILY [facility] Nitroglycerin (Nitro-Dur 0.2 Mg/Hr Patch) 1 patch TD QAM [facility] Last Admin: 06/16/17 12:51 Dose: 1 patch Potassium Chloride (Potassium Chloride Oral Soln) 20 meq PEG DAILY [facility] Last Admin: 06/16/17 10:00 Dose: Not Given - Labs Labs: 06/16/17 16:45 06/16/17 16:45 PT 13.8 SECONDS (9.4-12.5) H 06/15/17 13:34 INR 1.26 (0.93-1.08) H 06/15/17 13:34 APTT 29.6 Seconds (25.1-36.5) 06/15/17 13:34 - Constitutional Appears: Non-toxic - Head Exam Head Exam: NORMAL INSPECTION - Respiratory Exam Respiratory Exam: Decreased Breath Sounds - Cardiovascular Exam Cardiovascular Exam: +S1, +S2 - GI/Abdominal Exam GI & Abdominal Exam: Soft. absent: Tenderness Additional comments: dressings in place Assessment and Plan - Assessment and Plan (Free Text) Plan: Assessment Abdominal wall cellullitis with abscess associated with PEG tube CVA CAD HTN seizure disorder Plan Patient is for I and D today - continue Merrem and Vancomycin pending OR cultures will monitor clinically
[2017-06-16] MEDS: Vancomycin 1gm in NS 250ml 1 GM/250 ML BAG IVPB SCH (23:45)
[2017-06-17] MEDS: Pantoprazole 40mg/100ml IVPB 40 MG/100 ML BAG IVPB SCH (05:33)
[2017-06-17] MEDS: Meropenem 1 GM in Dextrose 5% In Water 100 ML IVPB SCH ×3 (05:34→22:47)
--- NOTE | 2017-06-17 05:55 | CP.PCM.PN ---
Subjective - Date & Time of Evaluation Date of Evaluation: 06/17/17 Time of Evaluation: 05:48 - Subjective Subjective: General Surgery Progress Note for Dr. Hartley This patient was seen and examined this AM at bedside. No acute events overnight. Vital signs stable. Dressings CDI. Will do wet to dry dressing change this AM. Objective - Vital Signs/Intake and Output Vital Signs (last 24 hours): Temp Pulse Resp BP Pulse Ox 98.2 F 82 18 119/69 97 06/17/17 00:00 06/17/17 00:00 06/17/17 00:00 06/17/17 00:00 06/17/17 00:00 - Medications Medications: Current Medications Amlodipine Besylate (Norvasc) 2.5 mg PEG QAM [facility] Last Admin: 06/16/17 10:00 Dose: Not Given Clopidogrel Bisulfate (Plavix) 75 mg PEG DAILY [facility] Last Admin: 06/16/17 10:00 Dose: Not Given Furosemide (Lasix) 40 mg IVP DAILY [facility] Last Admin: 06/16/17 11:40 Dose: 40 mg Hydromorphone HCl (Dilaudid) 0.5 mg IVP Q15M PRN PRN Reason: Pain, moderate (4-7) Stop: 06/17/17 16:31 Hydromorphone HCl (Dilaudid) 0.5 mg IVP Q4H PRN PRN Reason: Pain, moderate (4-7) Last Admin: 06/16/17 21:17 Dose: 0.5 mg Meropenem 1 gm/ Dextrose 100 mls @ 100 mls/hr IVPB Q8 [facility] PRN Reason: Protocol Stop: 06/24/17 13:16 Last Admin: 06/17/17 05:34 Dose: 100 mls/hr Levetiracetam (Keppra 500mg Ivpb) 500 mg in 100 mls @ 400 mls/hr IVPB Q12 [facility] Last Admin: 06/16/17 21:42 Dose: 400 mls/hr Pantoprazole Sodium (Protonix 40mg Ivpb) 40 mg in 100 mls @ 200 mls/hr IVPB 0600 [facility] Last Admin: 06/17/17 05:33 Dose: 200 mls/hr Dextrose (Dextrose 5% In Water 1000 Ml) 1,000 mls @ 100 mls/hr IV .Q10H [facility] Last Admin: 06/16/17 11:45 Dose: 100 mls/hr Vancomycin HCl (Vancomycin 1gm) 1 gm in 250 mls @ 167 mls/hr IVPB Q12H [facility] PRN Reason: Protocol Last Admin: 06/16/17 23:45 Dose: 167 mls/hr Levothyroxine Sodium (Synthroid) 125 mcg IVP DAILY [facility] Nitroglycerin (Nitro-Dur 0.2 Mg/Hr Patch) 1 patch TD QAM [facility] Last Admin: 06/16/17 12:51 Dose: 1 patch Potassium Chloride (Potassium Chloride Oral Soln) 20 meq PEG DAILY [facility] Last Admin: 06/16/17 10:00 Dose: Not Given - Labs Labs: 06/16/17 16:45 06/16/17 16:45 PT 13.8 SECONDS (9.4-12.5) H 06/15/17 13:34 INR 1.26 (0.93-1.08) H 06/15/17 13:34 APTT 29.6 Seconds (25.1-36.5) 06/15/17 13:34 - Constitutional Appears: Non-toxic, No Acute Distress - Head Exam Head Exam: ATRAUMATIC - ENT Exam ENT Exam: Mucous Membranes Moist - Respiratory Exam Respiratory Exam: NORMAL BREATHING PATTERN - Cardiovascular Exam Cardiovascular Exam: REGULAR RHYTHM - GI/Abdominal Exam GI & Abdominal Exam: Soft - Psychiatric Exam Additional comments: Not accessable Assessment and Plan - Assessment and Plan (Free Text) Assessment: This is an 82F with a PMH of CVA who presented with an Abdominal wall abscess not POD#1 S/P I&D and Debridment of her abd wall abscess. PT also had Rt leg swelling with US positive for chronic DVT. Wet to dry dressing change today Continue ABX Possible back to OR tomorrow Consider IVC filter for DVT Will discuss with Dr. Naeem Kamara PGY2
[2017-06-17 06:50] LABS: HEMATOCRIT 26.5 % (36.0-48.0); MEAN CORPUSCULAR HEMOGLOBIN 28.1 pg (25.0-35.0); MEAN CORPUSCULAR HGB CONC 30.2 g/dl (31.0-37.0); MEAN PLATELET VOLUME 9.6 fl (7.0-11.0); RED CELL DISTRIBUTION WIDTH 15.5 % (11.5-14.5); WHITE BLOOD COUNT 9.9 10^3/ul (4.5-11.0)
[2017-06-17 07:26] LABS: ALB/GLOB RATIO 0.8 (1.1-1.8); ALKALINE PHOSPHATASE 61 U/L (38-126); ALT/SGPT 36 U/L (7-56); AST/SGOT 34 U/L (14-36); BILIRUBIN,TOTAL 0.3 mg/dL (0.2-1.3); BLOOD UREA NITROGEN 23 mg/dL (7-21); CALCIUM 8.2 mg/dL (8.4-10.5); CARBON DIOXIDE 35 mmol/L (21-33); CHLORIDE 113 mmol/L (98-107); GFR AFRICAN-AMERICAN > 60; GLUCOSE,RANDOM 134 mg/dL (70-110); SODIUM 151 mmol/L (132-148); TOTAL PROTEIN 5.3 g/dL (5.8-8.3)
--- NOTE | 2017-06-17 09:50 | PN ---
DATE: 06/17/2017 SUBJECTIVE: The patient is in bed, in no acute distress, nontoxic. The patient is seen earlier this morning in 568, bed 2. PHYSICAL EXAMINATION: VITAL SIGNS: Temperature is 98, blood pressure is 111/60, respiratory rate of 18. HEENT: Unremarkable. NECK: Supple. LUNGS: Have decreased breath sounds. HEART: Normal S1, S2. ABDOMEN: Soft, nontender. LABORATORY DATA: Reveals a white count of 9.9, hemoglobin of 8, platelets of 283. Chemistries are noted. BUN of 23, creatinine of 0.7 and urinalysis is noted and microbiology reveals the patient's blood cultures have no growth, urine cultures no growth. Abdominal culture is Staph aureus, sensitivity is pending and review of orders reveals the patient to be on meropenem and vancomycin and the surgical note is reviewed. ASSESSMENT/PLAN: This is an 82-year-old female with abdominal wall cellulitis and abscess with Staph aureus with a PEG tube in a patient who is bedridden with cerebrovascular accident, hypertension, coronary artery disease, seizures, and currently on vancomycin, meropenem. We will check on the sensitivity of the Staph aureus. The patient is for possible return to the OR for further debridement. Today is postop day #1 of the first debridement. The patient had I and D yesterday by Dr. Hartley and surgical team. Momo Mckenzie MD
[2017-06-17] MEDS: levETIRAcetam 500mg IVPB 500 MG/100 ML BAG IVPB SCH ×2 (10:33→21:32)
[2017-06-17] MEDS: Vancomycin 1gm in NS 250ml 1 GM/250 ML BAG IVPB SCH ×2 (10:48→22:47)
[2017-06-17] MEDS: Nitroglycerin 0.2 mg/hr Top Patch TD SCH (12:42)
--- NOTE | 2017-06-17 16:10 | PN ---
SUBJECTIVE: She is resting in bed. She is bandaged across her abdomen. She is alert. Her eyes are open. She is nonverbal at her baseline. She had a bad infection in her abdomen and ulcer, which was debrided the other day. She is on dextrose, Dilaudid, Keppra, Lasix, Merrem IV, Nitro-Dur, Norvasc, Plavix, potassium, Protonix, Synthroid, and vancomycin IV. PHYSICAL EXAMINATION: VITAL SIGNS: She has 98 temperature, 75 pulse, 111/65 blood pressure, 18 respiratory rate, and 96% of O2 saturation on room air. HEENT: Head is atraumatic and normocephalic. HEART: Regular rate. LUNGS: Decreased breath sounds, but clear. ABDOMEN: Soft. She has got a large bandage across the left side of her abdomen from an ulcer that developed from a feeding tube dislodgement and acid. EXTREMITIES: Have edema, +2/4, which is baseline and she is paralyzed from a stroke. NEUROLOGIC: She is nonverbal. LABORATORY DATA: She has a 9.9 white count; 8 hemoglobin, if it drops below 8, I am going to transfuse; 26.5 hematocrit with 283 platelets. She has a 151 sodium, it is coming down, thank you for Renal. Potassium is 4, BUN 23, creatinine 0.7, GFR is greater than 60, sugar is 134. Calcium is 8.2, total bilirubin is 0.3, AST is 34, ALT is 36, alkaline phosphatase 61, total protein is 5.3. TSH is 7.85, which is elevated. She is getting her Synthroid in the IV at 125. I spoke to Surgery, we will get a Dobhoff placed. I am going to increase her Synthroid to 150 once her TSH is off and we will continue aggressive treatment and care for the abdomen and skin ulcer. Oswaldo Russell DO
--- NOTE | 2017-06-17 16:30 | CP.PCM.PN ---
Subjective - Date & Time of Evaluation Date of Evaluation: 06/17/17 Time of Evaluation: 16:27 - Subjective Subjective: Nephrology Consultation: Assessment: stable Hypernatremia due to dehydration: improving HTN, CVA with left hemiparesis and contractures, dementia, NH resident, chronic leg edema ? due to hypoalbuminemia. also has hx of CHF s/p dislodgement feeding tube and abdomen wall cellulitis and abdominal fluid collection/abscess with MRSA s/p I and D DVT Plan continue with D5W @ 100 ml/hr to help with hypernatremia. once serum Na close to normal then can switch to D5/0.45% saline or 0.45% saline alone supplement electrolytes as indicated BP on low side, d/c norvasc. Monitor Input/Output, daily weights and renal function and electrolytes with basic metabolic panel surgery and ID following Anemia: PRBC as needed. Further work up/management as per primary team Thanks for allowing me to participate in care of your patient. Will follow patient with you. Please call if any Qs Dr Sonu Doll Office: [phone] Chief Complaint; Unable to obtain from pt reason for consult: Hypernatremia HPI: Pt is a 82 y/o F with hx of HTN, CVA with left hemiparesis and contractures , dementia, NH resident, chronic leg edema, had dislodged feeding tube and here with cellulitis and abdominal fluid collection/abscess. also found to have hypernatremia hence renal consult was requested pt is non-communicative and unable to obtain any ROS from her Physical Examination: General Appearance: in no acute respiratory distress, Vitals reviewed and noted as below Head; Atraumatic, normocephalic ENT: unable to examine as pt not following commands EYES: Pupils are equal, round and reactive to light accommodation. Sclera is anicteric. Neck; supple no lymphadenopathy, no thyromegaly or bruit Lungs: Normal respiratory rate/effort. Breath sounds bilateral equal and clear anteriorly Heart: Normal rate. s1s2 normal. No rub or gallop. Extremities: 2+ edema. No varicose veins Neurological: Patient is non-communicative, left hemiparesis and contractures Skin: Warm and dry. Normal turgor. No rash. Palpitation: Normal elasticity for age Abdomen: Abdomen is soft. Bowel sounds +. There is upper abdomen dressing s/p I/ D Psych: unable MSK: no joint tenderness or swelling. : kidney or bladder not palpable. she is incontinent Labs/imaging/EKG reviewed. Past medical history, past surgical history, family history, social history, allergy reviewed and noted as below Family hx: no hx of CKD. Rest non-contributory echo in past had showed normal LVEF Objective - Vital Signs/Intake and Output Vital Signs (last 24 hours): Temp Pulse Resp BP Pulse Ox 98.0 F 75 18 101/54 L 96 06/17/17 07:30 06/17/17 07:30 06/17/17 07:30 06/17/17 10:48 06/17/17 07:30 Intake and Output: 06/17/17 06/17/17 06:59 18:59 Intake Total 0 Output Total 0 Balance 0 - Medications Medications: Current Medications Amlodipine Besylate (Norvasc) 2.5 mg PEG QAM [facility] Clopidogrel Bisulfate (Plavix) 75 mg PEG DAILY [facility] Last Admin: 06/16/17 10:00 Dose: Not Given Furosemide (Lasix) 40 mg IVP DAILY [facility] Last Admin: 06/17/17 10:48 Dose: Not Given Hydromorphone HCl (Dilaudid) 0.5 mg IVP Q15M PRN PRN Reason: Pain, moderate (4-7) Stop: 06/17/17 16:31 Hydromorphone HCl (Dilaudid) 0.5 mg IVP Q4H PRN PRN Reason: Pain, moderate (4-7) Last Admin: 06/16/17 21:17 Dose: 0.5 mg Meropenem 1 gm/ Dextrose 100 mls @ 100 mls/hr IVPB Q8 [facility] PRN Reason: Protocol Stop: 06/24/17 13:16 Last Admin: 06/17/17 13:34 Dose: 100 mls/hr Levetiracetam (Keppra 500mg Ivpb) 500 mg in 100 mls @ 400 mls/hr IVPB Q12 [facility] Last Admin: 06/17/17 10:33 Dose: 400 mls/hr Pantoprazole Sodium (Protonix 40mg Ivpb) 40 mg in 100 mls @ 200 mls/hr IVPB 0600 [facility] Last Admin: 06/17/17 05:33 Dose: 200 mls/hr Dextrose (Dextrose 5% In Water 1000 Ml) 1,000 mls @ 100 mls/hr IV .Q10H [facility] Last Admin: 06/16/17 11:45 Dose: 100 mls/hr Vancomycin HCl (Vancomycin 1gm) 1 gm in 250 mls @ 167 mls/hr IVPB Q12H [facility] PRN Reason: Protocol Last Admin: 06/17/17 10:48 Dose: 167 mls/hr Levothyroxine Sodium (Synthroid) 150 mcg IVP DAILY [facility] Nitroglycerin (Nitro-Dur 0.2 Mg/Hr Patch) 1 patch TD QAM [facility] Last Admin: 06/17/17 12:42 Dose: 1 patch Potassium Chloride (Potassium Chloride Oral Soln) 20 meq PEG DAILY [facility] Last Admin: 06/16/17 10:00 Dose: Not Given - Labs Labs: 06/17/17 06:30 06/17/17 06:30 PT 13.8 SECONDS (9.4-12.5) H 06/15/17 13:34 INR 1.26 (0.93-1.08) H 06/15/17 13:34 APTT 29.6 Seconds (25.1-36.5) 06/15/17 13:34
[2017-06-17] MEDS: Potassium Chloride 20 mEq/15 ml LIQ UD PEG SCH (18:47)
[2017-06-18] MEDS: Pantoprazole 40mg/100ml IVPB 40 MG/100 ML BAG IVPB SCH (05:54)
[2017-06-18] MEDS: Meropenem 1 GM in Dextrose 5% In Water 100 ML IVPB SCH (05:54)
[2017-06-18 06:28] LABS: HEMATOCRIT 25.3 % (36.0-48.0); MEAN CELL VOLUME 90.7 fl (80.0-105.0); MEAN CORPUSCULAR HEMOGLOBIN 27.6 pg (25.0-35.0); MEAN CORPUSCULAR HGB CONC 30.4 g/dl (31.0-37.0); MEAN PLATELET VOLUME 9.6 fl (7.0-11.0); RED CELL DISTRIBUTION WIDTH 15.2 % (11.5-14.5); WHITE BLOOD COUNT 11.9 10^3/ul (4.5-11.0)
[2017-06-18 06:42] LABS: INR 1.25 (0.93-1.08); PARTIAL THROMBOPLASTIN TIME 29.6 Seconds (25.1-36.5)
[2017-06-18 07:04] LABS: ALB/GLOB RATIO 0.8 (1.1-1.8); ALKALINE PHOSPHATASE 80 U/L (38-126); ALT/SGPT 36 U/L (7-56); AST/SGOT 35 U/L (14-36); BILIRUBIN,TOTAL 0.4 mg/dL (0.2-1.3); BLOOD UREA NITROGEN 18 mg/dL (7-21); CALCIUM 8.2 mg/dL (8.4-10.5); CARBON DIOXIDE 33 mmol/L (21-33); CHLORIDE 109 mmol/L (98-107); GFR AFRICAN-AMERICAN > 60; GLUCOSE,RANDOM 146 mg/dL (70-110); POTASSIUM 3.2 mmol/L (3.6-5.0); SODIUM 146 mmol/L (132-148); TOTAL PROTEIN 5.8 g/dL (5.8-8.3)
--- NOTE | 2017-06-18 08:41 | PN ---
DATE: 06/16/2017 SUBJECTIVE: I saw Kelly as the nurses were changing her bed and she is still having lots of oozing brown dark fluid coming from multiple sites of her abdomen. She is on antibiotics and I took out 1000 mL after putting a needle into that area. She is apparently comfortable. Eyes are looking at me, nothing acute with her, but the belly is not bad PHYSICAL EXAMINATION: VITAL SIGNS: She has 97.6 temperature, 83 pulse, 114/65 blood pressure, 16 respiratory rate, 100% O2 on 2 liters nasal cannula. HEENT: Head is atraumatic, normocephalic. HEART: Regular rate. LUNGS: Decreased breath sounds, but clear to auscultation, poor inspiration. ABDOMEN: Soft. There are bowel sounds. There is a large area of multiple ulcers with oozing. If you palpate it gentle, there is brown junk coming from them, clear fluid, brown fluid coming from all across the abdomen from the PEG tube site all the way across to the left. EXTREMITIES: The legs have a little bit of swelling. She gets several time to time +2/4. LABORATORY DATA: She has 157 sodium, I thought the sodium would come down with the IV fluids, it did not, I called on Renal to help us. She has a BUN of 25, creatinine 0.6 better, GFR is greater than 60, sugar is 88, calcium is 8.6, total bilirubin is 0.4, AST is 26, ALT is 36, alkaline phosphatase is 72, and total protein is 5.4. White count is 6.9, hemoglobin is 8.3, if the hemoglobin drops below 8, I will transfuse her, hematocrit is 28.1, and platelets are 301. MEDICATIONS: She is currently on Keppra IV, Lasix IV, Merrem IV, Nitro-Dur patch, Norvasc, Plavix, potassium replacement, Protonix, IV fluids, and Synthroid. ASSESSMENT AND PLAN: She is being seen by Surgery, GI, and Infectious Disease. We will continue with aggressive treatment and care, IV antibiotics. Hopefully, we will put a Dobhoff tube in her so we could see her and I will discuss that with Surgery. She is here for severe wound infection on the abdomen. We will check her labs tomorrow. Oswaldo Russell DO [place]
--- NOTE | 2017-06-18 09:52 | CP.PCM.PN ---
Subjective - Date & Time of Evaluation Date of Evaluation: 06/18/17 Time of Evaluation: 09:48 - Subjective Subjective: Surgery Pt s&e. Dressing changed this AM. Pain controlled. Afebrile. Objective - Vital Signs/Intake and Output Vital Signs (last 24 hours): Temp Pulse Resp BP Pulse Ox 97.9 F 90 20 132/74 95 06/18/17 07:56 06/18/17 07:56 06/18/17 07:56 06/18/17 07:56 06/18/17 07:56 Intake and Output: 06/18/17 06/18/17 06:59 18:59 Intake Total 1350 Balance 1350 - Medications Medications: Current Medications Amlodipine Besylate (Norvasc) 2.5 mg PEG QAM [facility] Clopidogrel Bisulfate (Plavix) 75 mg PEG DAILY [facility] Last Admin: 06/17/17 18:46 Dose: Not Given Furosemide (Lasix) 40 mg IVP DAILY [facility] Last Admin: 06/17/17 10:48 Dose: Not Given Hydromorphone HCl (Dilaudid) 0.5 mg IVP Q4H PRN PRN Reason: Pain, moderate (4-7) Last Admin: 06/16/17 21:17 Dose: 0.5 mg Levetiracetam (Keppra 500mg Ivpb) 500 mg in 100 mls @ 400 mls/hr IVPB Q12 [facility] Last Admin: 06/17/17 21:32 Dose: 400 mls/hr Pantoprazole Sodium (Protonix 40mg Ivpb) 40 mg in 100 mls @ 200 mls/hr IVPB 0600 [facility] Last Admin: 06/18/17 05:54 Dose: 200 mls/hr Dextrose (Dextrose 5% In Water 1000 Ml) 1,000 mls @ 100 mls/hr IV .Q10H [facility] Last Admin: 06/17/17 18:48 Dose: Not Given Vancomycin HCl (Vancomycin 1gm) 1 gm in 250 mls @ 167 mls/hr IVPB Q12H [facility] PRN Reason: Protocol Last Admin: 06/17/17 22:47 Dose: 167 mls/hr Potassium Chloride (Potassium Chloride 20 Meq/100 Ml) 20 meq in 100 mls @ 50 mls/hr IVPB ONCE ONE Stop: 06/18/17 10:39 Levothyroxine Sodium (Synthroid) 150 mcg IVP DAILY [facility] Nitroglycerin (Nitro-Dur 0.2 Mg/Hr Patch) 1 patch TD QAM [facility] Last Admin: 06/17/17 12:42 Dose: 1 patch Potassium Chloride (Potassium Chloride Oral Soln) 20 meq PEG DAILY [facility] Last Admin: 06/17/17 18:47 Dose: Not Given - Labs Labs: 06/18/17 05:30 06/18/17 05:30 PT 13.8 SECONDS (9.4-12.5) H 06/18/17 05:30 INR 1.25 (0.93-1.08) H 06/18/17 05:30 APTT 29.6 Seconds (25.1-36.5) 06/18/17 05:30 - Constitutional Appears: Chronically Ill - Head Exam Head Exam: ATRAUMATIC, NORMAL INSPECTION, NORMOCEPHALIC - Eye Exam Eye Exam: EOMI, Normal appearance, PERRL Pupil Exam: NORMAL ACCOMODATION, PERRL - ENT Exam ENT Exam: Mucous Membranes Moist, Normal Exam - Neck Exam Neck Exam: Full ROM, Normal Inspection. absent: Lymphadenopathy - Respiratory Exam Respiratory Exam: Clear to Ausculation Bilateral, NORMAL BREATHING PATTERN - Cardiovascular Exam Cardiovascular Exam: REGULAR RHYTHM, +S1, +S2. absent: Murmur - GI/Abdominal Exam GI & Abdominal Exam: Soft, Normal Bowel Sounds. absent: Distended, Firm, Guarding, Rigid, Tenderness Additional comments: 30cm open incision. Granulation tissues. - Extremities Exam Extremities Exam: Normal Capillary Refill, Normal Inspection. absent: Full ROM , Joint Swelling, Pedal Edema - Neurological Exam Neurological Exam: absent: Normal Gait - Skin Skin Exam: Erythema, Warm. absent: Intact, Normal Color Assessment and Plan - Assessment and Plan (Free Text) Assessment: This is an 82F with a PMH of CVA who presented with an Abdominal wall abscess not POD#2 S/P I&D and Debridment of her abd wall abscess. PT also had Rt leg swelling with US positive for chronic DVT. Wet to dry dressing changed today with Betadine Continue ABX Consider IVC filter for DVT Will discuss with Dr. Hartley
--- NOTE | 2017-06-18 10:17 | PN ---
DATE: SUBJECTIVE: I saw her resting in bed. She is alert, eyes are open, on multiple IVs at this time, and a peripheral line. I am going to order a PICC line. Her abdomen is bandaged from the large wound. PHYSICAL EXAMINATION: VITAL SIGNS: She has a 97.9 temperature, 90 pulse, 132/74 blood pressure, 20 respiratory rate, and 95% O2 saturation on room air. HEENT: Head is atraumatic, normocephalic. She is looking at me, she is nonverbal. Mouth is moist. HEART: Regular. LUNGS: Decreased breath sounds, poor inspiration. I do not hear any rales, wheezes or rhonchi though, which is good. ABDOMEN: Obese, is soft, decreased bowel sounds, but present. Belly is very bandaged from the midline all the way to the left. EXTREMITIES: Have edema +2 at a minimum over 4, that is her baseline. LABORATORY DATA: Had a hard time with IV access, I ordered a PICC line also. Sodium is 146, potassium is 3.2, I ordered a K-rider, BUN is 18, creatinine is 0.7, GFR is greater than 62, sugar is 146, calcium is 8.2, total bilirubin is 0.4, AST is 35, ALT is 36, alk phos is 80, and total protein is 5.8. TSH is coming down to 6.95. I increased her thyroid medicine Synthroid yesterday. White count bumped up to 11.9, I discussed that with the infectious disease doctor to keep an eye on that and antibiotics, also the hemoglobin dropped to 7.7, I am going to transfer her with two units of packed red blood cells, I will give her Lasix 40 mg IV one time dose in between the two units, hematocrit is 25.3, and platelets are 335. ASSESSMENT AND PLAN: She is in trouble with a very bad abdominal wound infection. Also she lost a feeding tube. I am hoping that the surgery will put the Dobbhoff in, so that we could feed her. She has cellulitis abscess, old cerebrovascular accident, she hypertension, coronary artery disease, and seizures. She is on vancomycin and Merrem. We will transfuse her. Oswaldo Russell DO [facility] # [id number] GONZÁLEZ
[2017-06-18] MEDS: Levothyroxine 100 mcg (0.1 mg) Inj IVP SCH (10:24)
[2017-06-18] MEDS: Nitroglycerin 0.2 mg/hr Top Patch TD SCH (10:25)
[2017-06-18] MEDS: levETIRAcetam 500mg IVPB 500 MG/100 ML BAG IVPB SCH ×2 (10:25→21:22)
[2017-06-18] MEDS: Potassium Chloride 20 mEq/15 ml LIQ UD PEG SCH (10:25)
[2017-06-18] MEDS ORDERED: Dextrose 5%/0.45% NS 1,000 ML IV SCH ×2 (10:30→12:30)
[2017-06-18] MEDS: Vancomycin 1gm in NS 250ml 1 GM/250 ML BAG IVPB SCH (11:30)
[2017-06-18] MEDS ORDERED: HYDROmorphone 1 mg/ml ISec IVP STA (13:23)
--- NOTE | 2017-06-18 14:11 | CP.PCM.PN ---
Subjective - Date & Time of Evaluation Date of Evaluation: 06/18/17 Time of Evaluation: 14:09 - Subjective Subjective: Nephrology Consultation: Assessment: stable Hypernatremia due to dehydration: improving Hypokalemia s/p dislodgement feeding tube and abdomen wall cellulitis and abdominal fluid collection/abscess with MRSA s/p I and D HTN, CVA with left hemiparesis and contractures, dementia, NH resident, chronic leg edema ? due to hypoalbuminemia. also has hx of CHF DVT skin blisters Plan switch to D5/0.45% saline at lowered rate continue with diuretics supplement electrolytes as indicated BP on low side, d/c norvasc. Monitor Input/Output, daily weights and renal function and electrolytes with basic metabolic panel surgery and ID following Anemia: for PRBC 06/18/2017. Further work up/management as per primary team Thanks for allowing me to participate in care of your patient. Will follow patient with you. Please call if any Qs. d/w team Dr Sonu Doll Office: [phone] Chief Complaint; Unable to obtain from pt reason for consult: Hypernatremia HPI: Pt is a 82 y/o F with hx of HTN, CVA with left hemiparesis and contractures , dementia, NH resident, chronic leg edema, had dislodged feeding tube and here with cellulitis and abdominal fluid collection/abscess. also found to have hypernatremia hence renal consult was requested pt is non-communicative and unable to obtain any ROS from her Physical Examination: General Appearance: in no acute respiratory distress, Vitals reviewed and noted as below Head; Atraumatic, normocephalic ENT: unable to examine as pt not following commands EYES: Pupils are equal, round and reactive to light accommodation. Sclera is anicteric. Neck; supple no lymphadenopathy, no thyromegaly or bruit Lungs: Normal respiratory rate/effort. Breath sounds bilateral equal and clear anteriorly Heart: Normal rate. s1s2 normal. No rub or gallop. Extremities: 2+ edema. No varicose veins Neurological: Patient is non-communicative, left hemiparesis and contractures Skin: Warm and dry. has clear fluid filled blisters over both forearms Abdomen: Abdomen is soft. Bowel sounds +. There is upper abdomen dressing s/p I/ D Psych: unable MSK: no joint tenderness or swelling. : kidney or bladder not palpable. she is incontinent Labs/imaging/EKG reviewed. Past medical history, past surgical history, family history, social history, allergy reviewed and noted as below Family hx: no hx of CKD. Rest non-contributory echo in past had showed normal LVEF Objective - Vital Signs/Intake and Output Vital Signs (last 24 hours): Temp Pulse Resp BP Pulse Ox 97.9 F 77 20 147/77 95 06/18/17 07:56 06/18/17 13:40 06/18/17 07:56 06/18/17 13:40 06/18/17 07:56 Intake and Output: 06/18/17 06/18/17 06:59 18:59 Intake Total 1350 Balance 1350 - Medications Medications: Current Medications Amlodipine Besylate (Norvasc) 2.5 mg PEG QAM [facility] Last Admin: 06/18/17 10:25 Dose: Not Given Clopidogrel Bisulfate (Plavix) 75 mg PEG DAILY [facility] Last Admin: 06/17/17 18:46 Dose: Not Given Furosemide (Lasix) 40 mg IVP DAILY [facility] Last Admin: 06/17/17 10:48 Dose: Not Given Hydromorphone HCl (Dilaudid) 0.5 mg IVP Q4H PRN PRN Reason: Pain, moderate (4-7) Last Admin: 06/16/17 21:17 Dose: 0.5 mg Levetiracetam (Keppra 500mg Ivpb) 500 mg in 100 mls @ 400 mls/hr IVPB Q12 [facility] Last Admin: 06/18/17 10:25 Dose: 400 mls/hr Pantoprazole Sodium (Protonix 40mg Ivpb) 40 mg in 100 mls @ 200 mls/hr IVPB 0600 [facility] Last Admin: 06/18/17 05:54 Dose: 200 mls/hr Vancomycin HCl (Vancomycin 1gm) 1 gm in 250 mls @ 167 mls/hr IVPB Q12H [facility] PRN Reason: Protocol Last Admin: 06/17/17 22:47 Dose: 167 mls/hr Dextrose/Sodium Chloride (Dextrose 5%/0.45% Ns 1000 Ml) 1,000 mls @ 75 mls/hr IV .[id number] [facility] Last Admin: 06/18/17 10:24 Dose: 75 mls/hr Levothyroxine Sodium (Synthroid) 150 mcg IVP DAILY [facility] Last Admin: 06/18/17 10:24 Dose: 150 mcg Nitroglycerin (Nitro-Dur 0.2 Mg/Hr Patch) 1 patch TD QAM [facility] Last Admin: 06/18/17 10:25 Dose: 1 patch Potassium Chloride (Potassium Chloride Oral Soln) 20 meq PEG DAILY [facility] Last Admin: 06/18/17 10:25 Dose: Not Given - Labs Labs: 06/18/17 05:30 06/18/17 05:30 PT 13.8 SECONDS (9.4-12.5) H 06/18/17 05:30 INR 1.25 (0.93-1.08) H 06/18/17 05:30 APTT 29.6 Seconds (25.1-36.5) 06/18/17 05:30
--- NOTE | 2017-06-18 14:13 | PN ---
DATE: 06/18/2017 SUBJECTIVE: The patient is in bed, in no acute distress, nontoxic. PHYSICAL EXAMINATION: VITAL SIGNS: Temperature is 98, blood pressure is 130/70, and respiratory rate of 20. HEENT: Unremarkable. NECK: Supple. LUNGS: Decreased breath sounds. HEART: Normal S1 and S2. ABDOMEN: Soft and nontender. LABORATORY DATA: Reveals the white count of 11,900, hemoglobin of 7, and platelets of 335. BUN of 18 and creatinine of 0.7. MRSA from the wound culture. Blood cultures are negative. ASSESSMENT AND PLAN: An 82-year-old female admitted with an abdominal wall cellulitis and abscess with methicillin-resistant staphylococcus aureus and PEG tube. The patient was bedridden with cerebrovascular accident, hypertension, coronary artery disease, seizures, on vancomycin. We will discontinue the meropenem. Today's postop procedure day #2. Case was discussed with Dr. Oswaldo Russell. Momo Mckenzie MD
--- NOTE | 2017-06-18 15:18 | RAD ---
PROCEDURE: Portable chest HISTORY: confirm dophoff placement COMPARISON: 06/15/2017 TECHNIQUE: FINDINGS: The feeding tube is seen in satisfactory position in the gastric fundus. The right-sided PICC line terminates at the junction of the SVC and right atrium in satisfactory position. IMPRESSION: As above
[2017-06-18] MEDS ORDERED: Albuterol-Ipratrop 3 mg / 0.5 (3 ml) UD IH PRN (18:35)
--- NOTE | 2017-06-18 18:43 | CP.PCM.PN ---
Subjective - Date & Time of Evaluation Date of Evaluation: 06/18/17 Time of Evaluation: 18:30 - Subjective Subjective: Nurse paged to evaluate patient , thinks patient might be in distress. Patient is an 82 y/o non verbal, CVA sent from shelter with infected peg tube s/p wound vac, anemia, chronic DVT , currently being transfuse prbc when nurse noted patient to be in respiratory distress. Upon evaluating patient, patient appears comfortable, was saturating 100% on room air, HR in the 80s, RR 12, BP 96/60s. RRR, CTA b/l. Upper abdomen with dressing, Upper extremities with blisters, + pitting edema in the lower extremities. Plan: Patient appears comfortable now, nurse to do bladder scan. Will continue with current management. Discussed with Dr Paiz. Objective - Vital Signs/Intake and Output Vital Signs (last 24 hours): Temp Pulse Resp BP Pulse Ox 98.7 F 80 18 97/67 L 94 L 06/18/17 18:31 06/18/17 18:31 06/18/17 18:31 06/18/17 18:31 06/18/17 16:00 Intake and Output: 06/18/17 06/18/17 06:59 18:59 Intake Total 1350 365 Balance 1350 365 - Medications Medications: Current Medications Albuterol/Ipratropium (Duoneb 3 Mg/0.5 Mg (3 Ml) Ud) 3 ml IH [id number] PRN PRN Reason: Shortness of Breath Amlodipine Besylate (Norvasc) 2.5 mg PEG QAM [facility] Last Admin: 06/18/17 10:25 Dose: Not Given Clopidogrel Bisulfate (Plavix) 75 mg PEG DAILY [facility] Last Admin: 06/17/17 18:46 Dose: Not Given Furosemide (Lasix) 40 mg IVP DAILY [facility] Last Admin: 06/17/17 10:48 Dose: Not Given Hydromorphone HCl (Dilaudid) 0.5 mg IVP Q4H PRN PRN Reason: Pain, moderate (4-7) Last Admin: 06/16/17 21:17 Dose: 0.5 mg Levetiracetam (Keppra 500mg Ivpb) 500 mg in 100 mls @ 400 mls/hr IVPB Q12 [facility] Last Admin: 06/18/17 10:25 Dose: 400 mls/hr Pantoprazole Sodium (Protonix 40mg Ivpb) 40 mg in 100 mls @ 200 mls/hr IVPB 0600 [facility] Last Admin: 06/18/17 05:54 Dose: 200 mls/hr Vancomycin HCl (Vancomycin 1gm) 1 gm in 250 mls @ 167 mls/hr IVPB Q12H [facility] PRN Reason: Protocol Last Admin: 06/17/17 22:47 Dose: 167 mls/hr Dextrose/Sodium Chloride (Dextrose 5%/0.45% Ns 1000 Ml) 1,000 mls @ 75 mls/hr IV .[id number] [facility] Last Admin: 06/18/17 10:24 Dose: 75 mls/hr Levothyroxine Sodium (Synthroid) 150 mcg IVP DAILY [facility] Last Admin: 06/18/17 10:24 Dose: 150 mcg Nitroglycerin (Nitro-Dur 0.2 Mg/Hr Patch) 1 patch TD QAM [facility] Last Admin: 06/18/17 10:25 Dose: 1 patch Potassium Chloride (Potassium Chloride Oral Soln) 20 meq PEG DAILY [facility] Last Admin: 06/18/17 10:25 Dose: Not Given Silver Sulfadiazine (Silvadene 1% 25 Gm) 0 gm TP BID [facility] - Labs Labs: 06/18/17 05:30 06/18/17 05:30 PT 13.8 SECONDS (9.4-12.5) H 06/18/17 05:30 INR 1.25 (0.93-1.08) H 06/18/17 05:30 APTT 29.6 Seconds (25.1-36.5) 06/18/17 05:30
[2017-06-18] MEDS: Silver Sulfadiazine 1% Cream (25 gm) TP SCH (18:59)
[2017-06-19] MEDS: Pantoprazole 40mg/100ml IVPB 40 MG/100 ML BAG IVPB SCH (05:52)
--- NOTE | 2017-06-19 07:18 | CP.PCM.PN ---
Subjective - Date & Time of Evaluation Date of Evaluation: 06/19/17 Time of Evaluation: 07:15 - Subjective Subjective: Surgery Pt s&e. Placed wound vac on upper abd yesterday and placed NGT. Tolerated it well. On 40cc/hr tube feed. Objective - Vital Signs/Intake and Output Vital Signs (last 24 hours): Temp Pulse Resp BP Pulse Ox 97.9 F 73 16 118/57 L 94 L 06/19/17 00:30 06/19/17 00:30 06/19/17 00:30 06/19/17 00:30 06/18/17 16:00 Intake and Output: 06/19/17 06/19/17 06:59 18:59 Intake Total 320 Balance 320 - Medications Medications: Current Medications Albuterol/Ipratropium (Duoneb 3 Mg/0.5 Mg (3 Ml) Ud) 3 ml IH [id number] PRN PRN Reason: Shortness of Breath Amlodipine Besylate (Norvasc) 2.5 mg PEG QAM [facility] Last Admin: 06/18/17 10:25 Dose: Not Given Clopidogrel Bisulfate (Plavix) 75 mg PEG DAILY [facility] Last Admin: 06/17/17 18:46 Dose: Not Given Furosemide (Lasix) 40 mg IVP DAILY [facility] Last Admin: 06/18/17 18:59 Dose: Not Given Hydromorphone HCl (Dilaudid) 0.5 mg IVP Q4H PRN PRN Reason: Pain, moderate (4-7) Last Admin: 06/16/17 21:17 Dose: 0.5 mg Levetiracetam (Keppra 500mg Ivpb) 500 mg in 100 mls @ 400 mls/hr IVPB Q12 [facility] Last Admin: 06/18/17 21:22 Dose: 400 mls/hr Pantoprazole Sodium (Protonix 40mg Ivpb) 40 mg in 100 mls @ 200 mls/hr IVPB 0600 [facility] Last Admin: 06/19/17 05:52 Dose: 200 mls/hr Dextrose/Sodium Chloride (Dextrose 5%/0.45% Ns 1000 Ml) 1,000 mls @ 60 mls/hr IV .[id number] [facility] Levothyroxine Sodium (Synthroid) 150 mcg IVP DAILY [facility] Last Admin: 06/18/17 10:24 Dose: 150 mcg Nitroglycerin (Nitro-Dur 0.2 Mg/Hr Patch) 1 patch TD QAM [facility] Last Admin: 06/18/17 10:25 Dose: 1 patch Potassium Chloride (Potassium Chloride Oral Soln) 20 meq PEG DAILY [facility] Last Admin: 06/18/17 10:25 Dose: Not Given Silver Sulfadiazine (Silvadene 1% 25 Gm) 0 gm TP BID [facility] Last Admin: 06/18/17 18:59 Dose: 25 gm - Labs Labs: 06/18/17 05:30 06/18/17 05:30 PT 13.8 SECONDS (9.4-12.5) H 06/18/17 05:30 INR 1.25 (0.93-1.08) H 06/18/17 05:30 APTT 29.6 Seconds (25.1-36.5) 06/18/17 05:30 - Constitutional Appears: No Acute Distress - Head Exam Head Exam: ATRAUMATIC, NORMAL INSPECTION, NORMOCEPHALIC - Eye Exam Eye Exam: EOMI, Normal appearance, PERRL Pupil Exam: NORMAL ACCOMODATION, PERRL - ENT Exam ENT Exam: Mucous Membranes Moist, Normal Exam - Neck Exam Neck Exam: absent: Full ROM Additional comments: NGT in place. - Respiratory Exam Respiratory Exam: NORMAL BREATHING PATTERN - Cardiovascular Exam Cardiovascular Exam: REGULAR RHYTHM, +S1, +S2. absent: Murmur - GI/Abdominal Exam GI & Abdominal Exam: Soft, Normal Bowel Sounds. absent: Distended, Firm, Guarding, Rigid, Tenderness Additional comments: Wound vac in place. no leaks. 40x3cm incision. - Extremities Exam Extremities Exam: Pedal Edema. absent: Full ROM, Normal Inspection Additional comments: b/l arms swelling and multiple bullae - Neurological Exam Neurological Exam: Awake. absent: Alert, Normal Gait, Oriented x3 - Skin Skin Exam: Erythema, Vesicles. absent: Dry, Intact, Normal Color Assessment and Plan - Assessment and Plan (Free Text) Assessment: This is an 82F with a PMH of CVA who presented with an Abdominal wall abscess not POD#3 S/P I&D and Debridment of her abd wall abscess. PT also had Rt leg swelling with US positive for chronic DVT. Wound vac placement POD 1 NExt wound vac change on Wednesday Continue ABX Consider IVC filter for DVT Will discuss with Dr. Hartley
[2017-06-19 07:42] LABS: HEMATOCRIT 30.8 % (36.0-48.0); MEAN CELL VOLUME 89.5 fl (80.0-105.0); MEAN CORPUSCULAR HEMOGLOBIN 28.2 pg (25.0-35.0); MEAN CORPUSCULAR HGB CONC 31.5 g/dl (31.0-37.0); MEAN PLATELET VOLUME 9.3 fl (7.0-11.0); RED CELL DISTRIBUTION WIDTH 15.8 % (11.5-14.5); WHITE BLOOD COUNT 11.7 10^3/ul (4.5-11.0)
[2017-06-19 08:29] LABS: ALB/GLOB RATIO 0.8 (1.1-1.8); ALKALINE PHOSPHATASE 77 U/L (38-126); ALT/SGPT 30 U/L (7-56); AST/SGOT 43 U/L (14-36); BILIRUBIN,TOTAL 0.4 mg/dL (0.2-1.3); BLOOD UREA NITROGEN 18 mg/dL (7-21); CARBON DIOXIDE 33 mmol/L (21-33); CHLORIDE 108 mmol/L (98-107); GFR AFRICAN-AMERICAN > 60; GLUCOSE,RANDOM 96 mg/dL (70-110); POTASSIUM 3.5 mmol/L (3.6-5.0); SODIUM 144 mmol/L (132-148); TOTAL PROTEIN 5.2 g/dL (5.8-8.3)
--- NOTE | 2017-06-19 09:55 | PN ---
DATE: 06/19/2017 SUBJECTIVE: The patient is seen the patient seen in room number 568, bed 2. The patient developed bullous lesions on her arms yesterday afternoon and antibiotics were discontinued. PHYSICAL EXAMINATION: VITAL SIGNS: On exam, temperature is 97, blood pressure is 120/90, respiratory rate of 20 and heart rate of 80. HEENT: Examination of HEENT is unremarkable. NECK: Supple. LUNGS: Have decreased breath sounds. HEART: Normal S1, S2. GASTROINTESTINAL: Abdominal examination is soft. EXTREMITIES: Examination of the arm reveals multiple bullous lesions. MEDICATIONS: Review of medication reveals the antibiotics are off. ASSESSMENT AND PLAN: This is an 82-year-old female who was admitted with abdominal wall cellulitis and abscess with methicillin-resistant Staphylococcus aureus and percutaneous endoscopic gastrostomy tube infection with a history of cerebrovascular accident, and coronary artery disease. 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 The vancomycin has been discontinued. The patient does have methicillin-resistant Staphylococcus aureus. We will use Zyvox. The patient is not on any antidepressant and no selective serotonin reuptake inhibitors. Her platelets are 267. Momo Mckenzie MD
[2017-06-19] MEDS: Potassium Chloride 20 mEq/15 ml LIQ UD PEG SCH ×2 (10:11→17:02)
[2017-06-19] MEDS: levETIRAcetam 500mg IVPB 500 MG/100 ML BAG IVPB SCH ×2 (10:31→21:34)
[2017-06-19] MEDS: Nitroglycerin 0.2 mg/hr Top Patch TD SCH (10:32)
[2017-06-19] MEDS: Linezolid 600 mg in D5W 300 ml 600 MG/300 ML BAG IVPB SCH ×2 (10:33→22:00)
[2017-06-19] MEDS: Levothyroxine 100 mcg (0.1 mg) Inj IVP SCH (10:33)
[2017-06-19] MEDS: Silver Sulfadiazine 1% Cream (25 gm) TP SCH ×2 (10:36→17:01)
--- NOTE | 2017-06-19 12:10 | PN ---
DATE: SUBJECTIVE: I saw Kelly resting comfortably in bed. Her eyes are open. I saw her with the nurse. She is having bullous pemphigus like looking arms. It is a reaction to the vancomycin, which was stopped by Dr. Mckenzie, Infectious Disease doctor. She had a reaction to vancomycin also. She has now been put on Zyvox to help her with the MRSA. PHYSICAL EXAMINATION: GENERAL: She is alert. Eyes are open. VITAL SIGNS: 97.9 temperature, 73 pulse, 118/57 blood pressure, 16 respiratory rate , temperature was good. HEART: Regular rate. LUNGS: Decreased breath sounds. Poor inspiration, but clear, no wheezing, no rhonchi, no rales. ABDOMEN: Bandaged. It is soft. She has large wound oozing, it was I and D'd and aspirated over 1000 mL. EXTREMITIES: Trace edema, but much better than they have been in the past. LABORATORY DATA: White count 11.7, hemoglobin 9.7, better after transfusion, hematocrit 30.8 with platelets 267. She has a sodium 144, potassium 3.5, we are going to replace the potassium, BUN is 18, creatinine 0.7, GFR is greater than 60, sugar 96, calcium 8, total bilirubin is 0.4, AST 43, ALT 30, alkaline phosphatase 77, and total protein 5.2. MEDICATIONS: She is on dextrose, Dilaudid, DuoNeb, Keppra, Lasix, Nitro-Dur, Plavix, potassium, Protonix, Silvadene cream, Synthroid, and she has got an Dobhoff tube in place now to feed her. ASSESSMENT AND PLAN: She is being seen by numerous physicians, Infectious Disease, Renal, GI, Surgery. We are going to continue with aggressive treatment and care. Skin care, antibiotics. She has a bad wound on her abdomen and it is MRSA. Oswaldo Russell DO
[2017-06-19] MEDS: Dextrose 5%/0.45% NS 1,000 ML IV SCH (17:00)
--- NOTE | 2017-06-19 17:05 | CP.PCM.PN ---
Subjective - Date & Time of Evaluation Date of Evaluation: 06/19/17 Time of Evaluation: 11:05 - Subjective Subjective: Nephrology Consultation: Assessment: stable Hypernatremia due to dehydration: improving Hypokalemia s/p dislodgement feeding tube and abdomen wall cellulitis and abdominal fluid collection/abscess with MRSA s/p I and D HTN, CVA with left hemiparesis and contractures, dementia, NH resident, chronic leg edema ? due to hypoalbuminemia. also has hx of CHF DVT skin blisters Plan switch to D5/0.45% saline at lowered rate 50 ml/hr. pt also on tube feeld via dobhoff tube continue with diuretics supplement electrolytes as indicated BP on low side, d/c norvasc. Monitor Input/Output, daily weights and renal function and electrolytes with basic metabolic panel surgery and ID following Anemia: for PRBC 06/18/2017. Further work up/management as per primary team Thanks for allowing me to participate in care of your patient. Will follow patient with you. Please call if any Qs. d/w team Dr Sonu Doll Office: [phone] Chief Complaint; Unable to obtain from pt reason for consult: Hypernatremia HPI: Pt is a 82 y/o F with hx of HTN, CVA with left hemiparesis and contractures , dementia, NH resident, chronic leg edema, had dislodged feeding tube and here with cellulitis and abdominal fluid collection/abscess. also found to have hypernatremia hence renal consult was requested pt is non-communicative and unable to obtain any ROS from her Physical Examination: General Appearance: in no acute respiratory distress, Vitals reviewed and noted as below Head; Atraumatic, normocephalic ENT: unable to examine as pt not following commands EYES: Pupils are equal, round and reactive to light accommodation. Sclera is anicteric. Neck; supple no lymphadenopathy, no thyromegaly or bruit Lungs: Normal respiratory rate/effort. Breath sounds bilateral equal and clear anteriorly Heart: Normal rate. s1s2 normal. No rub or gallop. Extremities: 2+ edema. No varicose veins Neurological: Patient is non-communicative, left hemiparesis and contractures Skin: Warm and dry. has clear fluid filled blisters over both forearms Abdomen: Abdomen is soft. Bowel sounds +. There is upper abdomen dressing s/p I/ D Psych: unable MSK: no joint tenderness or swelling. : kidney or bladder not palpable. she is incontinent Labs/imaging/EKG reviewed. Past medical history, past surgical history, family history, social history, allergy reviewed and noted as below Family hx: no hx of CKD. Rest non-contributory echo in past had showed normal LVEF Objective - Vital Signs/Intake and Output Vital Signs (last 24 hours): Temp Pulse Resp BP Pulse Ox 97.5 F L 82 20 104/57 L 96 06/19/17 16:00 06/19/17 16:00 06/19/17 16:00 06/19/17 16:00 06/19/17 16:00 Intake and Output: 06/19/17 06/19/17 06:59 18:59 Intake Total 320 Balance 320 - Medications Medications: Current Medications Albuterol/Ipratropium (Duoneb 3 Mg/0.5 Mg (3 Ml) Ud) 3 ml IH [id number] PRN PRN Reason: Shortness of Breath Clopidogrel Bisulfate (Plavix) 75 mg PEG DAILY [facility] Last Admin: 06/17/17 18:46 Dose: Not Given Furosemide (Lasix) 40 mg IVP DAILY [facility] Last Admin: 06/19/17 10:32 Dose: 40 mg Hydromorphone HCl (Dilaudid) 0.5 mg IVP Q4H PRN PRN Reason: Pain, moderate (4-7) Last Admin: 06/16/17 21:17 Dose: 0.5 mg Levetiracetam (Keppra 500mg Ivpb) 500 mg in 100 mls @ 400 mls/hr IVPB Q12 [facility] Last Admin: 06/19/17 10:31 Dose: 400 mls/hr Pantoprazole Sodium (Protonix 40mg Ivpb) 40 mg in 100 mls @ 200 mls/hr IVPB 0600 [facility] Last Admin: 06/19/17 05:52 Dose: 200 mls/hr Linezolid (Zyvox 600mg/300ml D5w) 600 mg in 300 mls @ 200 mls/hr IVPB Q12 [facility] PRN Reason: Protocol Stop: 06/28/17 10:01 Last Admin: 06/19/17 10:33 Dose: 200 mls/hr Dextrose/Sodium Chloride (Dextrose 5%/0.45% Ns 1000 Ml) 1,000 mls @ 50 mls/hr IV .Q20H [facility] Last Admin: 06/19/17 17:00 Dose: 50 mls/hr Levothyroxine Sodium (Synthroid) 150 mcg IVP DAILY [facility] Last Admin: 06/19/17 10:33 Dose: 150 mcg Nitroglycerin (Nitro-Dur 0.2 Mg/Hr Patch) 1 patch TD QAM [facility] Last Admin: 06/19/17 10:32 Dose: 1 patch Potassium Chloride (Potassium Chloride Oral Soln) 20 meq PEG BID [facility] Last Admin: 06/19/17 17:02 Dose: 20 meq Silver Sulfadiazine (Silvadene 1% 25 Gm) 0 gm TP BID [facility] Last Admin: 06/19/17 17:01 Dose: 75 gm - Labs Labs: 06/19/17 07:00 06/19/17 07:00 PT 13.8 SECONDS (9.4-12.5) H 06/18/17 05:30 INR 1.25 (0.93-1.08) H 06/18/17 05:30 APTT 29.6 Seconds (25.1-36.5) 06/18/17 05:30
[2017-06-20] MEDS: Pantoprazole 40mg/100ml IVPB 40 MG/100 ML BAG IVPB SCH (05:57)
--- NOTE | 2017-06-20 07:22 | CP.PCM.PN ---
Subjective - Date & Time of Evaluation Date of Evaluation: 06/20/17 Time of Evaluation: 07:19 - Subjective Subjective: General Surgery - Dr. Hartley Pt S&E. FAZAL. PT non-verbal, no apparent distress. Tube feeds via dobhoff going at 50cc/hr with very low residual as per nursing. Wound vac in place to low cont. suction. Objective - Vital Signs/Intake and Output Vital Signs (last 24 hours): Temp Pulse Resp BP Pulse Ox 97.5 F L 100 H 18 108/73 98 06/20/17 00:00 06/20/17 00:00 06/20/17 00:00 06/20/17 00:00 06/20/17 00:00 Intake and Output: 06/20/17 06/20/17 06:59 18:59 Intake Total 1650 Output Total 0 Balance 1650 - Medications Medications: Current Medications Albuterol/Ipratropium (Duoneb 3 Mg/0.5 Mg (3 Ml) Ud) 3 ml IH [id number] PRN PRN Reason: Shortness of Breath Clopidogrel Bisulfate (Plavix) 75 mg PEG DAILY [facility] Last Admin: 06/17/17 18:46 Dose: Not Given Furosemide (Lasix) 40 mg IVP DAILY [facility] Last Admin: 06/19/17 10:32 Dose: 40 mg Hydromorphone HCl (Dilaudid) 0.5 mg IVP Q4H PRN PRN Reason: Pain, moderate (4-7) Last Admin: 06/16/17 21:17 Dose: 0.5 mg Levetiracetam (Keppra 500mg Ivpb) 500 mg in 100 mls @ 400 mls/hr IVPB Q12 [facility] Last Admin: 06/19/17 21:34 Dose: 400 mls/hr Pantoprazole Sodium (Protonix 40mg Ivpb) 40 mg in 100 mls @ 200 mls/hr IVPB 0600 [facility] Last Admin: 06/20/17 05:57 Dose: 200 mls/hr Linezolid (Zyvox 600mg/300ml D5w) 600 mg in 300 mls @ 200 mls/hr IVPB Q12 [facility] PRN Reason: Protocol Stop: 06/28/17 10:01 Last Admin: 06/19/17 22:00 Dose: 200 mls/hr Dextrose/Sodium Chloride (Dextrose 5%/0.45% Ns 1000 Ml) 1,000 mls @ 50 mls/hr IV .Q20H [facility] Last Admin: 06/19/17 17:00 Dose: 50 mls/hr Levothyroxine Sodium (Synthroid) 150 mcg IVP DAILY [facility] Last Admin: 06/19/17 10:33 Dose: 150 mcg Nitroglycerin (Nitro-Dur 0.2 Mg/Hr Patch) 1 patch TD QAM [facility] Last Admin: 06/19/17 10:32 Dose: 1 patch Potassium Chloride (Potassium Chloride Oral Soln) 20 meq PEG BID [facility] Last Admin: 06/19/17 17:02 Dose: 20 meq Silver Sulfadiazine (Silvadene 1% 25 Gm) 0 gm TP BID [facility] Last Admin: 06/19/17 17:01 Dose: 75 gm - Labs Labs: 06/19/17 07:00 06/19/17 07:00 PT 13.8 SECONDS (9.4-12.5) H 06/18/17 05:30 INR 1.25 (0.93-1.08) H 06/18/17 05:30 APTT 29.6 Seconds (25.1-36.5) 06/18/17 05:30 - Constitutional Appears: No Acute Distress - Head Exam Head Exam: ATRAUMATIC, NORMAL INSPECTION, NORMOCEPHALIC - Respiratory Exam Respiratory Exam: absent: Respiratory Distress - GI/Abdominal Exam GI & Abdominal Exam: Soft. absent: Distended, Guarding, Tenderness Additional comments: wound vac across upper abdomen, no leak - Neurological Exam Neurological Exam: Alert, Oriented x3 - Skin Skin Exam: Dry Additional comments: diffuse bullae/blistering Assessment and Plan - Assessment and Plan (Free Text) Assessment: 82F w/ hx of CVA, presented with abdominal wall infection d/t dislodged PEG tube , POD #4 s/p wound debridement -Wound vac change Wednesday -Continue feeds via Dobhoff, titrate to goal -Cont ABx as per ID DW Dr Naeem Garcia PGY3
[2017-06-20] MEDS: Levothyroxine 100 mcg (0.1 mg) Inj IVP SCH (09:34)
--- NOTE | 2017-06-20 10:51 | PN ---
DATE: 06/20/2017 SUBJECTIVE: The patient is seen earlier this morning in room 568, bed 2. No fevers and no chills. PHYSICAL EXAMINATION: VITAL SIGNS: Temperature 98, blood pressure 115/60, and respiratory rate 18. HEENT: Unremarkable. NECK: Supple. LUNGS: Decreased breath sounds. HEART: Normal S1 and S2. ABDOMEN: Soft and nontender. LABORATORY DATA: Reveals a white count of 11.7, hemoglobin of 9.7, and platelets of 267. Coagulation is noted. Chemistry reveals a BUN of 18 and creatinine of 0.7. Urinalysis is noted. Microbiology reveals MRSA. ASSESSMENT AND PLAN: This is an 82-year-old female admitted with abdominal wall cellulitis with methicillin-resistant Staphylococcus aureus of PEG tube, it is improved. 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 Case discussed with Dr. Oswaldo Russell and also discussed with the surgical team earlier this morning. Momo Mckenzie MD
[2017-06-20] MEDS: levETIRAcetam 500mg IVPB 500 MG/100 ML BAG IVPB SCH ×2 (11:47→21:42)
[2017-06-20] MEDS: Nitroglycerin 0.2 mg/hr Top Patch TD SCH (11:52)
[2017-06-20] MEDS: Potassium Chloride 20 mEq/15 ml LIQ UD PEG SCH ×2 (11:52→17:18)
[2017-06-20] MEDS: Silver Sulfadiazine 1% Cream (25 gm) TP SCH ×2 (11:52→17:14)
[2017-06-20] MEDS: Linezolid 600 mg in D5W 300 ml 600 MG/300 ML BAG IVPB SCH ×2 (12:05→22:57)
--- NOTE | 2017-06-20 14:02 | US ---
PROCEDURE: Left lower extremity venous US HISTORY: Leg pain and swelling. Evaluate for DVT. PHYSICIAN(S): Ayan Ocampo MD. TECHNIQUE: Duplex sonography and color-flow Doppler with graded compression were used to evaluate the deep venous system of the left lower extremity. FINDINGS: The exam is extremely limited by body habitus and edema. There appears to be occlusive thrombus in the visualized left tibial veins. The left popliteal vein, left femoral vein, and left common femoral vein are patent and compressible. IMPRESSION: 1. Possible isolated left tibial DVT. 2. The exam is very limited by body habitus and edema. 3. A followup left lower extremity venous ultrasound is recommended 7-10 days
[2017-06-20] MEDS: Dextrose 5%/0.45% NS 1,000 ML IV SCH (14:33)
--- NOTE | 2017-06-20 14:54 | CP.PCM.PN ---
Subjective - Date & Time of Evaluation Date of Evaluation: 06/20/17 Time of Evaluation: 14:52 - Subjective Subjective: Follow up Nephrology Consultation: Assessment: stable Hypernatremia due to dehydration: improving Hypokalemia s/p dislodgement feeding tube and abdomen wall cellulitis and abdominal fluid collection/abscess with MRSA s/p I and D HTN, CVA with left hemiparesis and contractures, dementia, NH resident, chronic leg edema ? due to hypoalbuminemia. also has hx of CHF DVT skin blisters Plan switch to D5/0.45% saline at lowered rate 50 ml/hr. pt also on tube feeld via dobhoff tube continue with diuretics supplement electrolytes as indicated BP on low side, d/c norvasc. Monitor Input/Output, daily weights and renal function and electrolytes with basic metabolic panel surgery and ID following Anemia: for PRBC 06/18/2017. Further work up/management as per primary team Thanks for allowing me to participate in care of your patient. Will follow patient with you. Please call if any Qs. d/w team Dr Sonu Doll Office: [phone] Chief Complaint; Unable to obtain from pt reason for consult: Hypernatremia HPI: Pt is a 82 y/o F with hx of HTN, CVA with left hemiparesis and contractures , dementia, NH resident, chronic leg edema, had dislodged feeding tube and here with cellulitis and abdominal fluid collection/abscess. also found to have hypernatremia hence renal consult was requested pt is non-communicative and unable to obtain any ROS from her Physical Examination: General Appearance: in no acute respiratory distress, Vitals reviewed and noted as below Head; Atraumatic, normocephalic ENT: unable to examine as pt not following commands EYES: Pupils are equal, round and reactive to light accommodation. Sclera is anicteric. Neck; supple no lymphadenopathy, no thyromegaly or bruit Lungs: Normal respiratory rate/effort. Breath sounds bilateral equal and clear anteriorly Heart: Normal rate. s1s2 normal. No rub or gallop. Extremities: 2+ edema. No varicose veins Neurological: Patient is non-communicative, left hemiparesis and contractures Skin: Warm and dry. has clear fluid filled blisters over both forearms Abdomen: Abdomen is soft. Bowel sounds +. There is upper abdomen dressing s/p I/ D Psych: unable MSK: no joint tenderness or swelling. : kidney or bladder not palpable. she is incontinent Labs/imaging/EKG reviewed. Past medical history, past surgical history, family history, social history, allergy reviewed and noted as below Family hx: no hx of CKD. Rest non-contributory echo in past had showed normal LVEF Objective - Vital Signs/Intake and Output Vital Signs (last 24 hours): Temp Pulse Resp BP Pulse Ox 98.3 F 91 H 18 115/65 97 06/20/17 07:30 06/20/17 07:30 06/20/17 07:30 06/20/17 09:33 06/20/17 07:30 Intake and Output: 06/20/17 06/20/17 06:59 18:59 Intake Total 1650 Output Total 0 Balance 1650 - Medications Medications: Current Medications Albuterol/Ipratropium (Duoneb 3 Mg/0.5 Mg (3 Ml) Ud) 3 ml IH [id number] PRN PRN Reason: Shortness of Breath Clopidogrel Bisulfate (Plavix) 75 mg PEG DAILY [facility] Last Admin: 06/17/17 18:46 Dose: Not Given Furosemide (Lasix) 40 mg IVP DAILY [facility] Last Admin: 06/20/17 09:33 Dose: 40 mg Hydromorphone HCl (Dilaudid) 0.5 mg IVP Q4H PRN PRN Reason: Pain, moderate (4-7) Last Admin: 06/16/17 21:17 Dose: 0.5 mg Levetiracetam (Keppra 500mg Ivpb) 500 mg in 100 mls @ 400 mls/hr IVPB Q12 [facility] Last Admin: 06/20/17 11:47 Dose: 400 mls/hr Pantoprazole Sodium (Protonix 40mg Ivpb) 40 mg in 100 mls @ 200 mls/hr IVPB 0600 [facility] Last Admin: 06/20/17 05:57 Dose: 200 mls/hr Linezolid (Zyvox 600mg/300ml D5w) 600 mg in 300 mls @ 200 mls/hr IVPB Q12 [facility] PRN Reason: Protocol Stop: 06/28/17 10:01 Last Admin: 06/20/17 12:05 Dose: 200 mls/hr Dextrose/Sodium Chloride (Dextrose 5%/0.45% Ns 1000 Ml) 1,000 mls @ 50 mls/hr IV .Q20H [facility] Last Admin: 06/20/17 14:33 Dose: 50 mls/hr Levothyroxine Sodium (Synthroid) 150 mcg IVP DAILY [facility] Last Admin: 06/20/17 09:34 Dose: 150 mcg Nitroglycerin (Nitro-Dur 0.2 Mg/Hr Patch) 1 patch TD QAM [facility] Last Admin: 06/20/17 11:52 Dose: 1 patch Potassium Chloride (Potassium Chloride Oral Soln) 20 meq PEG BID [facility] Last Admin: 06/20/17 11:52 Dose: 20 meq Silver Sulfadiazine (Silvadene 1% 25 Gm) 0 gm TP BID [facility] Last Admin: 06/20/17 11:52 Dose: 1 gm - Labs Labs: 06/19/17 07:00 06/19/17 07:00 PT 13.8 SECONDS (9.4-12.5) H 06/18/17 05:30 INR 1.25 (0.93-1.08) H 06/18/17 05:30 APTT 29.6 Seconds (25.1-36.5) 06/18/17 05:30
--- NOTE | 2017-06-20 14:56 | PN ---
SUBJECTIVE: I saw her resting comfortably in bed this morning. She has NG tube or Dobhoff tube infusing. She has antibiotics infusing. She is not alert at this time. She is sleeping. MEDICATIONS: She is on dextrose; Dilaudid; DuoNeb; Keppra; Lasix; Nitro-Dur; Plavix, which is on hold; potassium replacement; Protonix; Silvadene cream; Synthroid; Zyvox. PHYSICAL EXAMINATION: HEENT: Her head is atraumatic, normocephalic. Throat is moist. HEART: Regular rate. LUNGS: Decreased breath sounds but clear. ABDOMEN: Soft, morbidly obese. She has a large abdominal wound with a wound VAC. EXTREMITIES: Have +2/4 pitting edema. Upper arms has a bullous texture from a VANCOMYCIN ALLERGY, slowly improving. She is on Silvadene for that. LABORATORY DATA: She has 11.7 white count, 9.7 hemoglobin, better after transfusion, 30.8 hematocrit with 267 platelets. Sodium 144; potassium 3.5, which could be replaced; BUN 18; creatinine 0.7; GFR is greater than 60; sugar 96, calcium 8; magnesium 2.3; total bilirubin is 0.4; AST 43; ALT 30; alkaline phosphatase 77; total protein 5.2. She has methicillin-resistant Staphylococcus aureus that is in the wound. She is being seen by Surgery, Renal, Infectious Disease. Hopefully, she will continue to improve with the antibiotics and wound care. I will check her labs tomorrow, replace potassium, discussed with Infectious Disease and Renal. Oswaldo Russell DO
[2017-06-21] MEDS: Pantoprazole 40mg/100ml IVPB 40 MG/100 ML BAG IVPB SCH (05:25)
[2017-06-21 07:05] LABS: BASO # 0.02 K/mm3 (0.0-2.0); BASO % 0.2 % (0.0-3.0); EOS # 0.3 (0.0-0.7); EOS % 3.3 % (1.5-5.0); GRAN % 76.7 % (50.0-68.0); HEMATOCRIT 28.3 % (36.0-48.0); LYMPH # 1.5 (1.2-3.4); LYMPH % 13.9 % (22.0-35.0); MEAN CELL VOLUME 90.4 fl (80.0-105.0); MEAN CORPUSCULAR HEMOGLOBIN 28.4 pg (25.0-35.0); MEAN CORPUSCULAR HGB CONC 31.4 g/dl (31.0-37.0); MEAN PLATELET VOLUME 9.1 fl (7.0-11.0); MONO # 0.6 (0.1-0.6); MONO % 5.9 % (1.0-6.0); RED CELL DISTRIBUTION WIDTH 16.2 % (11.5-14.5); WHITE BLOOD COUNT 10.4 10^3/ul (4.5-11.0)
[2017-06-21 07:44] LABS: ALB/GLOB RATIO 0.9 (1.1-1.8); ALKALINE PHOSPHATASE 92 U/L (38-126); ALT/SGPT 30 U/L (7-56); AST/SGOT 40 U/L (14-36); BILIRUBIN,TOTAL 0.3 mg/dL (0.2-1.3); BLOOD UREA NITROGEN 17 mg/dL (7-21); CALCIUM 7.9 mg/dL (8.4-10.5); CARBON DIOXIDE 32 mmol/L (21-33); CHLORIDE 105 mmol/L (98-107); GFR AFRICAN-AMERICAN > 60; GLUCOSE,RANDOM 92 mg/dL (70-110); MAGNESIUM 2.1 mg/dL (1.7-2.2); PHOSPHOROUS 2.5 mg/dL (2.5-4.5); POTASSIUM 4.2 mmol/L (3.6-5.0); SODIUM 141 mmol/L (132-148); TOTAL PROTEIN 4.8 g/dL (5.8-8.3)
--- NOTE | 2017-06-21 08:48 | CP.PCM.PN ---
Subjective - Date & Time of Evaluation Date of Evaluation: 06/21/17 Time of Evaluation: 08:44 - Subjective Subjective: General Surgery Progress Note for Dr. Hartley: Pt seen and examined at bedside. Pt is non-verbal. No overnight events as per nursing. Pt currently with wound vac and receiving feeds via Dobhoff. Objective - Vital Signs/Intake and Output Vital Signs (last 24 hours): Temp Pulse Resp BP Pulse Ox 98.1 F 41 L 20 116/64 98 06/20/17 16:00 06/20/17 16:00 06/20/17 16:00 06/20/17 16:00 06/20/17 16:00 Intake and Output: 06/21/17 06/21/17 06:59 18:59 Intake Total 0 Balance 0 - Medications Medications: Current Medications Albuterol/Ipratropium (Duoneb 3 Mg/0.5 Mg (3 Ml) Ud) 3 ml IH [id number] PRN PRN Reason: Shortness of Breath Clopidogrel Bisulfate (Plavix) 75 mg PEG DAILY [facility] Last Admin: 06/17/17 18:46 Dose: Not Given Furosemide (Lasix) 40 mg IVP DAILY [facility] Last Admin: 06/20/17 09:33 Dose: 40 mg Levetiracetam (Keppra 500mg Ivpb) 500 mg in 100 mls @ 400 mls/hr IVPB Q12 [facility] Last Admin: 06/20/17 21:42 Dose: 400 mls/hr Pantoprazole Sodium (Protonix 40mg Ivpb) 40 mg in 100 mls @ 200 mls/hr IVPB 0600 [facility] Last Admin: 06/21/17 05:25 Dose: 200 mls/hr Linezolid (Zyvox 600mg/300ml D5w) 600 mg in 300 mls @ 200 mls/hr IVPB Q12 [facility] PRN Reason: Protocol Stop: 06/28/17 10:01 Last Admin: 06/20/17 22:57 Dose: 200 mls/hr Dextrose/Sodium Chloride (Dextrose 5%/0.45% Ns 1000 Ml) 1,000 mls @ 50 mls/hr IV .Q20H [facility] Last Admin: 06/20/17 14:33 Dose: 50 mls/hr Levothyroxine Sodium (Synthroid) 150 mcg IVP DAILY [facility] Last Admin: 06/20/17 09:34 Dose: 150 mcg Nitroglycerin (Nitro-Dur 0.2 Mg/Hr Patch) 1 patch TD QAM [facility] Last Admin: 06/20/17 11:52 Dose: 1 patch Potassium Chloride (Potassium Chloride Oral Soln) 20 meq PEG BID [facility] Last Admin: 06/20/17 17:18 Dose: 20 meq Silver Sulfadiazine (Silvadene 1% 25 Gm) 0 gm TP BID [facility] Last Admin: 06/20/17 17:14 Dose: 1 gm - Labs Labs: 06/21/17 05:00 06/21/17 06:30 PT 13.8 SECONDS (9.4-12.5) H 06/18/17 05:30 INR 1.25 (0.93-1.08) H 06/18/17 05:30 APTT 29.6 Seconds (25.1-36.5) 06/18/17 05:30 - Constitutional Appears: No Acute Distress - Head Exam Head Exam: ATRAUMATIC, NORMOCEPHALIC - Respiratory Exam Respiratory Exam: NORMAL BREATHING PATTERN. absent: Respiratory Distress - Cardiovascular Exam Cardiovascular Exam: RRR, +S1, +S2. absent: Diastolic murmur, Gallop, Rubs, Murmur - GI/Abdominal Exam Additional comments: Wound vac on upper abdomen. - Neurological Exam Neurological Exam: Alert, Awake - Skin Skin Exam: Intact, Normal Color, Warm Assessment and Plan - Assessment and Plan (Free Text) Assessment: 82F w/ hx of CVA, presented with abdominal wall infection d/t dislodged PEG tube , POD #5 s/p wound debridement Plan: -Afebrile, no leukocytosis -Wound vac changed at bedside today -Continue feeds via Dobhoff, titrate to goal -Cont ABx as per ID -OR on for debridement and closure of wound DW Dr Naeem Meadows, PGY1
[2017-06-21] MEDS: levETIRAcetam 500mg IVPB 500 MG/100 ML BAG IVPB SCH ×2 (09:23→21:39)
[2017-06-21] MEDS: Linezolid 600 mg in D5W 300 ml 600 MG/300 ML BAG IVPB SCH ×2 (09:24→22:04)
[2017-06-21] MEDS: Nitroglycerin 0.2 mg/hr Top Patch TD SCH (09:25)
[2017-06-21] MEDS: Levothyroxine 100 mcg (0.1 mg) Inj IVP SCH (09:25)
[2017-06-21] MEDS: Potassium Chloride 20 mEq/15 ml LIQ UD PEG SCH ×2 (09:25→18:59)
[2017-06-21] MEDS: Silver Sulfadiazine 1% Cream (25 gm) TP SCH (09:26)
[2017-06-21] MEDS: Enoxaparin 40 mg Syringe SC SCH (10:56)
--- NOTE | 2017-06-21 13:47 | PN ---
DATE: SUBJECTIVE: She is resting comfortably in bed. She has IV fluids running NG tube, through the Dobhoff in the nose running food. She also has a wound VAC on her abdomen for the severe wound. No acute distress by looking at her at this time. She is nonverbal from an old stroke. She is on isolation from MRSA. MEDICATIONS: She is on dextrose IV, DuoNeb, Keppra, Lasix IV, Nitro-Dur patch, Plavix on hold, potassium, Protonix, Silvadene, Synthroid, and Zyvox. PHYSICAL EXAMINATION: VITAL SIGNS: She has a 98.1 temperature, 91 pulse, 116/54 blood pressure, 20 respiratory rate, 98% O2 saturation on room air. HEENT: Head is atraumatic and normocephalic. She opens her eyes that is it. A Dobhoff tube in her nose with feedings infusing. HEART: Regular rate. LUNGS: Decreased breath sounds. ABDOMEN: Morbidly obese with a large abdominal wound, on a wound VAC. EXTREMITIES: +2/4 pitting edema. She is currently on dextrose, DuoNeb, Keppra, Lasix, Nitro-Dur, Plavix which is on hold, potassium, Protonix, Silvadene cream, Synthroid and Zyvox. I will put her on Lovenox. LABORATORY DATA: She has 10.4 white count, 8.9 hemoglobin, 28.3 hematocrit, with 252 platelets. INR is 1.25. She has a 141 sodium, potassium 4.2, BUN 17, creatinine 0.7, GFR is greater than 60, sugar is 92, calcium is 7.9, phosphorus is 2.5, magnesium is 2.1, total bilirubin is 0.3, AST is 40, ALT is 30, alkaline phosphatase is 92, total protein is 4.8. ASSESSMENT AND PLAN: She is being seen by multiple physicians, Renal, Infectious Disease, Surgery. We are going to try and get LTAC for continued care. She has severe abdominal wound and sepsis. Oswaldo Russell DO
--- NOTE | 2017-06-21 13:50 | CP.PCM.PN ---
Subjective - Date & Time of Evaluation Date of Evaluation: 06/21/17 Time of Evaluation: 11:55 - Subjective Subjective: Patient continues to have wound vacuum over the abdomen, no fevers overnight, not in distress. Objective - Vital Signs/Intake and Output Vital Signs (last 24 hours): Temp Pulse Resp BP Pulse Ox 98.1 F 41 L 20 170/106 H 98 06/20/17 16:00 06/20/17 16:00 06/20/17 16:00 06/21/17 09:24 06/20/17 16:00 Intake and Output: 06/21/17 06/21/17 06:59 18:59 Intake Total 0 Balance 0 - Medications Medications: Current Medications Albuterol/Ipratropium (Duoneb 3 Mg/0.5 Mg (3 Ml) Ud) 3 ml IH [id number] PRN PRN Reason: Shortness of Breath Clopidogrel Bisulfate (Plavix) 75 mg PEG DAILY [facility] Last Admin: 06/17/17 18:46 Dose: Not Given Enoxaparin Sodium (Lovenox) 40 mg SC DAILY [facility] PRN Reason: Protocol Furosemide (Lasix) 40 mg IVP DAILY [facility] Last Admin: 06/21/17 09:24 Dose: 40 mg Levetiracetam (Keppra 500mg Ivpb) 500 mg in 100 mls @ 400 mls/hr IVPB Q12 [facility] Last Admin: 06/21/17 09:23 Dose: 400 mls/hr Pantoprazole Sodium (Protonix 40mg Ivpb) 40 mg in 100 mls @ 200 mls/hr IVPB 0600 [facility] Last Admin: 06/21/17 05:25 Dose: 200 mls/hr Linezolid (Zyvox 600mg/300ml D5w) 600 mg in 300 mls @ 200 mls/hr IVPB Q12 [facility] PRN Reason: Protocol Stop: 06/28/17 10:01 Last Admin: 06/21/17 09:24 Dose: 200 mls/hr Dextrose/Sodium Chloride (Dextrose 5%/0.45% Ns 1000 Ml) 1,000 mls @ 50 mls/hr IV .Q20H [facility] Last Admin: 06/20/17 14:33 Dose: 50 mls/hr Levothyroxine Sodium (Synthroid) 150 mcg IVP DAILY [facility] Last Admin: 06/21/17 09:25 Dose: 150 mcg Nitroglycerin (Nitro-Dur 0.2 Mg/Hr Patch) 1 patch TD QAM [facility] Last Admin: 06/21/17 09:25 Dose: 1 patch Potassium Chloride (Potassium Chloride Oral Soln) 20 meq PEG BID [facility] Last Admin: 06/21/17 09:25 Dose: 20 meq Silver Sulfadiazine (Silvadene 1% 25 Gm) 0 gm TP BID [facility] Last Admin: 06/21/17 09:26 Dose: 25 gm - Labs Labs: 06/21/17 05:00 06/21/17 06:30 PT 13.8 SECONDS (9.4-12.5) H 06/18/17 05:30 INR 1.25 (0.93-1.08) H 06/18/17 05:30 APTT 29.6 Seconds (25.1-36.5) 06/18/17 05:30 - Constitutional Appears: Chronically Ill - ENT Exam Additional comments: NGT in place - Neck Exam Neck Exam: absent: Meningismus - Respiratory Exam Respiratory Exam: Decreased Breath Sounds - Cardiovascular Exam Cardiovascular Exam: +S1, +S2 - GI/Abdominal Exam GI & Abdominal Exam: Soft. 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 Russell
--- NOTE | 2017-06-21 14:30 | CP.PCM.PN ---
Subjective - Date & Time of Evaluation Date of Evaluation: 06/21/17 Time of Evaluation: 14:29 - Subjective Subjective: Follow up Nephrology Consultation: Assessment: stable Hypernatremia due to dehydration: improved Hypokalemia s/p dislodgement feeding tube and abdomen wall cellulitis and abdominal fluid collection/abscess with MRSA s/p I and D HTN, CVA with left hemiparesis and contractures, dementia, [place] resident, chronic leg edema ? due to hypoalbuminemia. also has hx of CHF DVT skin blisters Plan continue with D5/0.45% saline at 50 ml/hr. pt also on tube feeld via dobhoff tube continue with diuretics, add evening dose of 20 mg IVP as well supplement electrolytes as indicated BP on low side, d/c norvasc. Monitor Input/Output, daily weights and renal function and electrolytes with basic metabolic panel surgery and ID following Anemia: for PRBC 06/18/2017. Further work up/management as per primary team Thanks for allowing me to participate in care of your patient. Will follow patient with you. Please call if any Qs. Dr Sonu Doll Office: [phone] Chief Complaint; Unable to obtain from pt reason for consult: Hypernatremia HPI: Pt is a 82 y/o F with hx of HTN, CVA with left hemiparesis and contractures , dementia, [place] resident, chronic leg edema, had dislodged feeding tube and here with cellulitis and abdominal fluid collection/abscess. also found to have hypernatremia hence renal consult was requested pt is non-communicative and unable to obtain any ROS from her Physical Examination: General Appearance: in no acute respiratory distress, Vitals reviewed and noted as below Head; Atraumatic, normocephalic ENT: unable to examine as pt not following commands EYES: Pupils are equal, round and reactive to light accommodation. Sclera is anicteric. Neck; supple no lymphadenopathy, no thyromegaly or bruit Lungs: Normal respiratory rate/effort. Breath sounds bilateral equal and clear anteriorly Heart: Normal rate. s1s2 normal. No rub or gallop. Extremities: 2+ edema. No varicose veins Neurological: Patient is non-communicative, left hemiparesis and contractures Skin: Warm and dry. has clear fluid filled blisters over both forearms Abdomen: Abdomen is soft. Bowel sounds +. There is upper abdomen dressing s/p I/ D Psych: unable MSK: no joint tenderness : kidney or bladder not palpable. she is incontinent Labs/imaging/EKG reviewed. Past medical history, past surgical history, family history, social history, allergy reviewed and noted as below Family hx: no hx of CKD. Rest non-contributory echo in past had showed normal LVEF Objective - Vital Signs/Intake and Output Vital Signs (last 24 hours): Temp Pulse Resp BP Pulse Ox 98.2 F 86 24 122/66 98 06/21/17 12:24 06/21/17 12:24 06/21/17 12:24 06/21/17 12:24 06/20/17 16:00 Intake and Output: 06/21/17 06/21/17 06:59 18:59 Intake Total 0 Balance 0 - Medications Medications: Current Medications Albuterol/Ipratropium (Duoneb 3 Mg/0.5 Mg (3 Ml) Ud) 3 ml IH [id number] PRN PRN Reason: Shortness of Breath Clopidogrel Bisulfate (Plavix) 75 mg PEG DAILY [facility] Last Admin: 06/17/17 18:46 Dose: Not Given Enoxaparin Sodium (Lovenox) 40 mg SC DAILY [facility] PRN Reason: Protocol Last Admin: 06/21/17 10:56 Dose: 40 mg Furosemide (Lasix) 40 mg IVP DAILY [facility] Last Admin: 06/21/17 09:24 Dose: 40 mg Furosemide (Lasix) 20 mg IVP QPM [facility] Levetiracetam (Keppra 500mg Ivpb) 500 mg in 100 mls @ 400 mls/hr IVPB Q12 [facility] Last Admin: 06/21/17 09:23 Dose: 400 mls/hr Pantoprazole Sodium (Protonix 40mg Ivpb) 40 mg in 100 mls @ 200 mls/hr IVPB 0600 [facility] Last Admin: 06/21/17 05:25 Dose: 200 mls/hr Linezolid (Zyvox 600mg/300ml D5w) 600 mg in 300 mls @ 200 mls/hr IVPB Q12 [facility] PRN Reason: Protocol Stop: 06/28/17 10:01 Last Admin: 06/21/17 09:24 Dose: 200 mls/hr Dextrose/Sodium Chloride (Dextrose 5%/0.45% Ns 1000 Ml) 1,000 mls @ 50 mls/hr IV .Q20H [facility] Last Admin: 06/20/17 14:33 Dose: 50 mls/hr Levothyroxine Sodium (Synthroid) 150 mcg IVP DAILY [facility] Last Admin: 06/21/17 09:25 Dose: 150 mcg Nitroglycerin (Nitro-Dur 0.2 Mg/Hr Patch) 1 patch TD QAM [facility] Last Admin: 06/21/17 09:25 Dose: 1 patch Potassium Chloride (Potassium Chloride Oral Soln) 20 meq PEG BID [facility] Last Admin: 06/21/17 09:25 Dose: 20 meq Silver Sulfadiazine (Silvadene 1% 25 Gm) 0 gm TP BID [facility] Last Admin: 06/21/17 09:26 Dose: 25 gm - Labs Labs: 06/21/17 05:00 06/21/17 06:30 PT 13.8 SECONDS (9.4-12.5) H 06/18/17 05:30 INR 1.25 (0.93-1.08) H 06/18/17 05:30 APTT 29.6 Seconds (25.1-36.5) 06/18/17 05:30
[2017-06-21] MEDS: Dextrose 5%/0.45% NS 1,000 ML IV SCH (17:07)
[2017-06-22] MEDS: Pantoprazole 40mg/100ml IVPB 40 MG/100 ML BAG IVPB SCH (06:00)
[2017-06-22 07:12] LABS: HEMATOCRIT 29.3 % (36.0-48.0); MEAN CELL VOLUME 89.3 fl (80.0-105.0); MEAN CORPUSCULAR HGB CONC 31.4 g/dl (31.0-37.0); MEAN PLATELET VOLUME 9.5 fl (7.0-11.0); RED CELL DISTRIBUTION WIDTH 16.3 % (11.5-14.5); WHITE BLOOD COUNT 11.4 10^3/ul (4.5-11.0)
[2017-06-22 07:20] LABS: BLOOD UREA NITROGEN 16 mg/dL (7-21)
[2017-06-22 07:21] LABS: ALB/GLOB RATIO 0.8 (1.1-1.8); ALKALINE PHOSPHATASE 81 U/L (38-126); ALT/SGPT 37 U/L (7-56); AST/SGOT 45 U/L (14-36); BILIRUBIN,TOTAL 0.4 mg/dL (0.2-1.3); CALCIUM 8.1 mg/dL (8.4-10.5); CARBON DIOXIDE 31 mmol/L (21-33); CHLORIDE 104 mmol/L (98-107); GFR AFRICAN-AMERICAN > 60; GLUCOSE,RANDOM 94 mg/dL (70-110); POTASSIUM 4.2 mmol/L (3.6-5.0); SODIUM 140 mmol/L (132-148); TOTAL PROTEIN 5.3 g/dL (5.8-8.3)
[2017-06-22] MEDS ORDERED: Etomidate 20 mg/10ml Inj IV ONE (07:54)
--- NOTE | 2017-06-22 09:10 | PCM.SURG1 ---
Surgeon's Initial Post Op Note - Surgeon's Notes Surgeon: Naeem Manipulator Operator: Jose PGY3, Kristie PGY1 Type of Anesthesia: MAC Pre-Operative Diagnosis: Infected abdominal wound Operative Findings: Infected abdominal wound Post-Operative Diagnosis: Infected abdominal wound Operation Performed: Wound debridment, partial closure, wound vac change Specimen/Specimens Removed: none Estimated Blood Loss: EBL {In ML}: 5 Blood Products Given: N/A Drains Used: Wound Vac Post-Op Condition: Fair Date of Surgery/Procedure: 06/22/17 Time of Surgery/Procedure: 09:10
[2017-06-22] MEDS ORDERED: Sodium Chloride 0.9% 1,000 ML IV SCH (09:15)
--- NOTE | 2017-06-22 09:28 | PN ---
DATE: SUBJECTIVE: She is about the same as yesterday. Still with a lot of drainage in the wound VAC from the abdominal wound. No changes clinically. PHYSICAL EXAMINATION: VITAL SIGNS: 97.8 temp, 72 pulse, 150/96 blood pressure, 123/62 blood pressure, 22 respiratory rate, 90% O2 sat on room air. HEART: Regular rate. LUNGS: Clear to auscultation. ABDOMEN: With a wound VAC and bandage. Obese. EXTREMITIES: No edema. She is going to go for a surgical intervention today, possible wound closure and possible wound vacuum-assisted closure. She will then probably go to long-term acute care that was the plan she was accepted. LABORATORY DATA: She has 11.4 white count, 9.2 hemoglobin, 29.3 hematocrit with 268 platelets. 140 sodium, potassium 4.2, BUN 16, creatinine 0.7, GFR is greater than 60, sugar is 94, calcium is 8.1, total bili is 0.4. AST is 45, ALT is 37, alk phos is 81, total protein is 5.3. MEDICATIONS: She is currently on dextrose, DuoNebs, Keppra, Lasix, Lovenox, Nitro-Dur, Plavix, potassium replacement, Protonix, Silvadene cream, Synthroid and Zyvox. ASSESSMENT AND PLAN: She is being seen by Renal, Infectious Disease, Surgery. Once we get okay from Surgery after the procedure today, we will get her to long-term acute care. She will eventually need to have a feeding tube placed once the abdomen wound is all healed. We will continue with the Dobhoff feeding. Oswaldo Russell DO
[2017-06-22] MEDS: Levothyroxine 100 mcg (0.1 mg) Inj IVP SCH (11:13)
[2017-06-22] MEDS: Potassium Chloride 20 mEq/15 ml LIQ UD PEG SCH (11:17)
[2017-06-22] MEDS: levETIRAcetam 500mg IVPB 500 MG/100 ML BAG IVPB SCH (11:26)
[2017-06-22] MEDS: Enoxaparin 40 mg Syringe SC SCH (11:32)
--- NOTE | 2017-06-22 12:30 | CP.PCM.PN ---
Subjective - Date & Time of Evaluation Date of Evaluation: 06/22/17 Time of Evaluation: 11:05 - Subjective Subjective: No fevers overnight, not in distress, no diarrhea, no vomiting, underwent partial closure of abdominal wound today. Objective - Vital Signs/Intake and Output Vital Signs (last 24 hours): Temp Pulse Resp BP Pulse Ox 97.8 F 72 22 150/96 H 98 06/22/17 07:30 06/22/17 07:30 06/22/17 07:30 06/22/17 07:30 06/22/17 07:30 Intake and Output: 06/22/17 06/22/17 06:59 18:59 Intake Total 0 0 Output Total 900 Balance -900 0 - Medications Medications: Current Medications Albuterol/Ipratropium (Duoneb 3 Mg/0.5 Mg (3 Ml) Ud) 3 ml IH [id number] PRN PRN Reason: Shortness of Breath Clopidogrel Bisulfate (Plavix) 75 mg PEG DAILY [facility] Last Admin: 06/17/17 18:46 Dose: Not Given Enoxaparin Sodium (Lovenox) 40 mg SC DAILY [facility] PRN Reason: Protocol Last Admin: 06/21/17 10:56 Dose: 40 mg Furosemide (Lasix) 40 mg IVP DAILY [facility] Last Admin: 06/21/17 09:24 Dose: 40 mg Furosemide (Lasix) 20 mg IVP QPM [facility] Last Admin: 06/21/17 18:59 Dose: 20 mg Levetiracetam (Keppra 500mg Ivpb) 500 mg in 100 mls @ 400 mls/hr IVPB Q12 [facility] Last Admin: 06/21/17 21:39 Dose: 400 mls/hr Pantoprazole Sodium (Protonix 40mg Ivpb) 40 mg in 100 mls @ 200 mls/hr IVPB 0600 [facility] Last Admin: 06/22/17 06:00 Dose: 200 mls/hr Linezolid (Zyvox 600mg/300ml D5w) 600 mg in 300 mls @ 200 mls/hr IVPB Q12 [facility] PRN Reason: Protocol Stop: 06/28/17 10:01 Last Admin: 06/21/17 22:04 Dose: 200 mls/hr Dextrose/Sodium Chloride (Dextrose 5%/0.45% Ns 1000 Ml) 1,000 mls @ 50 mls/hr IV .Q20H [facility] Last Admin: 06/21/17 17:07 Dose: 50 mls/hr Sodium Chloride (Sodium Chloride 0.9%) 1,000 mls @ 100 mls/hr IV .Q10H [facility] Levothyroxine Sodium (Synthroid) 150 mcg IVP DAILY [facility] Last Admin: 06/21/17 09:25 Dose: 150 mcg Nitroglycerin (Nitro-Dur 0.2 Mg/Hr Patch) 1 patch TD QAM [facility] Last Admin: 06/21/17 09:25 Dose: 1 patch Potassium Chloride (Potassium Chloride Oral Soln) 20 meq PEG BID [facility] Last Admin: 06/21/17 18:59 Dose: 20 meq Silver Sulfadiazine (Silvadene 1% 25 Gm) 0 gm TP BID [facility] Last Admin: 06/21/17 09:26 Dose: 25 gm - Labs Labs: 06/22/17 06:40 06/22/17 06:40 PT 13.8 SECONDS (9.4-12.5) H 06/18/17 05:30 INR 1.25 (0.93-1.08) H 06/18/17 05:30 APTT 29.6 Seconds (25.1-36.5) 06/18/17 05:30 - Constitutional Appears: Chronically Ill - Head Exam Head Exam: NORMAL INSPECTION - Neck Exam Neck Exam: absent: Meningismus - Respiratory Exam Respiratory Exam: Decreased Breath Sounds - Cardiovascular Exam Cardiovascular Exam: +S1, +S2 - GI/Abdominal Exam GI & Abdominal Exam: Soft. 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 Russell
[2017-06-22] MEDS: Linezolid 600 mg in D5W 300 ml 600 MG/300 ML BAG IVPB SCH (12:42)
[2017-06-22] MEDS: Nitroglycerin 0.2 mg/hr Top Patch TD SCH (12:43)
--- NOTE | 2017-06-22 15:14 | CP.PCM.PN ---
Subjective - Date & Time of Evaluation Date of Evaluation: 06/22/17 Time of Evaluation: 15:13 - Subjective Subjective: Follow up Nephrology Consultation: Assessment: stable Hypernatremia due to dehydration: improved Hypokalemia: improved s/p dislodgement feeding tube and abdomen wall cellulitis and abdominal fluid collection/abscess with MRSA s/p I and D HTN, CVA with left hemiparesis and contractures, dementia, [place] resident, chronic leg edema ? due to hypoalbuminemia. also has hx of CHF DVT skin blisters Plan continue with D5/0.45% saline at 50 ml/hr. pt also on tube feed via dobhoff tube continue with diuretics, lasix IV 40 mg in Am and 20 mg in PM supplement electrolytes as indicated surgery and ID following Anemia: for PRBC 06/18/2017. Further work up/management as per primary team Thanks for allowing me to participate in care of your patient. Will follow patient with you. Please call if any Qs. Dr Sonu Doll Office: [phone] Chief Complaint; Unable to obtain from pt reason for consult: Hypernatremia HPI: Pt is a 82 y/o F with hx of HTN, CVA with left hemiparesis and contractures , dementia, [place] resident, chronic leg edema, had dislodged feeding tube and here with cellulitis and abdominal fluid collection/abscess. also found to have hypernatremia hence renal consult was requested pt is non-communicative and unable to obtain any ROS from her Physical Examination: General Appearance: in no acute respiratory distress, Vitals reviewed and noted as below Head; Atraumatic, normocephalic ENT: unable to examine as pt not following commands EYES: Pupils are equal, round and reactive to light accommodation. Sclera is anicteric. Neck; supple no lymphadenopathy, no thyromegaly or bruit Lungs: Normal respiratory rate/effort. Breath sounds bilateral equal and clear anteriorly Heart: Normal rate. s1s2 normal. No rub or gallop. Extremities: 2+ edema. No varicose veins Neurological: Patient is non-communicative, left hemiparesis and contractures Skin: Warm and dry. has clear fluid filled blisters over both forearms Abdomen: Abdomen is soft. Bowel sounds +. There is upper abdomen dressing s/p I/ D Psych: unable MSK: no joint tenderness : kidney or bladder not palpable. she is incontinent Labs/imaging/EKG reviewed. Past medical history, past surgical history, family history, social history, allergy reviewed and noted as below Family hx: no hx of CKD. Rest non-contributory echo in past had showed normal LVEF Objective - Vital Signs/Intake and Output Vital Signs (last 24 hours): Temp Pulse Resp BP Pulse Ox 98.4 F 95 H 10 L 150/96 H 100 06/22/17 09:14 06/22/17 09:59 06/22/17 09:59 06/22/17 11:30 06/22/17 09:59 Intake and Output: 06/22/17 06/22/17 06:59 18:59 Intake Total 0 0 Output Total 900 350 Balance -900 -350 - Medications Medications: Current Medications Albuterol/Ipratropium (Duoneb 3 Mg/0.5 Mg (3 Ml) Ud) 3 ml IH [id number] PRN PRN Reason: Shortness of Breath Clopidogrel Bisulfate (Plavix) 75 mg PEG DAILY [facility] Last Admin: 06/22/17 11:17 Dose: 75 mg Enoxaparin Sodium (Lovenox) 40 mg SC DAILY [facility] PRN Reason: Protocol Last Admin: 06/22/17 11:32 Dose: 40 mg Furosemide (Lasix) 40 mg IVP DAILY [facility] Last Admin: 06/22/17 11:30 Dose: 40 mg Furosemide (Lasix) 20 mg IVP QPM [facility] Last Admin: 06/21/17 18:59 Dose: 20 mg Levetiracetam (Keppra 500mg Ivpb) 500 mg in 100 mls @ 400 mls/hr IVPB Q12 [facility] Last Admin: 06/22/17 11:26 Dose: 400 mls/hr Pantoprazole Sodium (Protonix 40mg Ivpb) 40 mg in 100 mls @ 200 mls/hr IVPB 0600 [facility] Last Admin: 06/22/17 06:00 Dose: 200 mls/hr Linezolid (Zyvox 600mg/300ml D5w) 600 mg in 300 mls @ 200 mls/hr IVPB Q12 [facility] PRN Reason: Protocol Stop: 06/28/17 10:01 Last Admin: 06/22/17 12:42 Dose: 200 mls/hr Dextrose/Sodium Chloride (Dextrose 5%/0.45% Ns 1000 Ml) 1,000 mls @ 50 mls/hr IV .Q20H [facility] Last Admin: 06/21/17 17:07 Dose: 50 mls/hr Levothyroxine Sodium (Synthroid) 150 mcg IVP DAILY [facility] Last Admin: 06/22/17 11:13 Dose: 150 mcg Nitroglycerin (Nitro-Dur 0.2 Mg/Hr Patch) 1 patch TD QAM [facility] Last Admin: 06/22/17 12:43 Dose: 1 patch Potassium Chloride (Potassium Chloride Oral Soln) 20 meq PEG BID [facility] Last Admin: 06/22/17 11:17 Dose: 20 meq Silver Sulfadiazine (Silvadene 1% 25 Gm) 0 gm TP BID [facility] Last Admin: 06/21/17 09:26 Dose: 25 gm - Labs Labs: 06/22/17 06:40 06/22/17 06:40 PT 13.8 SECONDS (9.4-12.5) H 06/18/17 05:30 INR 1.25 (0.93-1.08) H 06/18/17 05:30 APTT 29.6 Seconds (25.1-36.5) 06/18/17 05:30
[2017-06-22 18:10] VITALS: BP 144/88; PULSE 68; RESP 22; TEMP 97.8; O2SAT 98
--- NOTE | 2017-06-23 08:26 | OP ---
PROCEDURE DATE: 06/22/2017 PREOPERATIVE DIAGNOSIS: Infected abdominal wall. POSTOPERATIVE DIAGNOSIS: Infected abdominal wall. OPERATION PERFORMED: Debridement of the wound, placement of the wound vacuum-assisted closure, partial wound closure with advancement flaps. SURGEON: Gilberto Hartley MD LOADER HELPER: Dr. Garcia. DESCRIPTION OF PROCEDURE: In the operating room, the patient was identified by the name, name of the procedure, laterality, my taylor, the consent and wrist band. The abdomen was prepped and draped with Betadine. After successful time-out, the abdomen was examined. Multiple areas of pockets on the left side of the abdomen were found and these were opened and debrided with a Versajet, a scissor and 15 blade as necessary. The wounds at the end were very well managed with very vigorous granulation seen as in such a short time. On the medial side, the area was cleaned, debrided. The deep tissue was closed with multiple layers of Vicryl. The skin was somewhat fibrotic and needed to be from the fat. Once this was done, the advancement flaps worked very nicely. These were closed with subcutaneous stitches of Vicryl followed by mattress stitches of nylon. The lateral part of the wound which was a little bit more messy was cleaned, debrided in a similar manner, and the black sponge was placed followed by the wound VAC. This was applied with good result. The patient was taken to the PACU in good condition, well tolerated. Gilberto Hartley MD
--- NOTE | 2017-06-23 15:53 | PQF GENQUE ---
06/23/17 Dr. Russell, Please clarify whether patient's sepsis is due to the displaced gastrostomy tube that was dislodged in the abdominal wall, causing abdominal abscess. Thank you. Clarification of your documentation is requested to better reflect the severity of illness and intensity of treatment of your patient. Indicators present [] Specify: [] [] Specify: [] [] Specify: [] [] Specify: [] Location in the medical record that reflects the above clinical findings: [] Treatment Provided: [] PHYSICIAN'S RESPONSE Based on your medical judgment of the clinical indicators outlined above please clarify the following: [] Practitioner response sepsis from deep abd wound [] If unable to determine, please check the box, sign and date. Present On Admission (POA) Indicator: [] Present at the time of admission [] Not present at the time of admission [] Clinically Undetermined In responding to this query, please exercise your independent professional judgment. The fact that a question is asked does not imply that any particular answer is desired or expected. Thank you for your clarification on this documentation. If you have any questions please call:[ ] * Thank you, [ ] roving hauler GONZÁLEZ
== END 2017-06-22 18:20 | DRG 854 ==
LOC: ED 10:47 → ERH 13:58 → 5RNO 17:15
PROVIDERS: ADMIT Family Medicine; ATTEND Family Medicine
PROC: 0HB7XZZ Excision of Abdomen Skin, External Approach (ICD-10-PCS; 2017-06-22)
PROC: 0HX7XZZ Transfer Abdomen Skin, External Approach (ICD-10-PCS; principal; 2017-06-22 07:30)
DX: A41.9 Sepsis, unspecified organism (principal); E87.0 Hyperosmolality and hypernatremia; L89.152 Pressure ulcer of sacral region, stage 2; E88.09 Other disorders of plasma-protein metabolism, not elsewhere classified; I11.0 Hypertensive heart disease with heart failure; G81.91 Hemiplegia, unspecified affecting right dominant side; I50.22 Chronic systolic (congestive) heart failure; K94.22 Gastrostomy infection; I69.354 Hemiplegia and hemiparesis following cerebral infarction affecting left non-dominant side; I82.511 Chronic embolism and thrombosis of right femoral vein; K94.23 Gastrostomy malfunction; L02.211 Cutaneous abscess of abdominal wall; L03.311 Cellulitis of abdominal wall; L10.9 Pemphigus, unspecified; D64.9 Anemia, unspecified; E86.0 Dehydration; E03.9 Hypothyroidism, unspecified; E87.6 Hypokalemia; F01.50 Vascular dementia, unspecified severity, without behavioral disturbance, psychotic disturbance, mood disturbance, and anxiety; G40.909 Epilepsy, unspecified, not intractable, without status epilepticus; H26.9 Unspecified cataract; I25.10 Atherosclerotic heart disease of native coronary artery without angina pectoris; K21.9 Gastro-esophageal reflux disease without esophagitis; Z74.01 Bed confinement status; Z82.49 Family history of ischemic heart disease and other diseases of the circulatory system; Z87.01 Personal history of pneumonia (recurrent); R32 Unspecified urinary incontinence; M24.50 Contracture, unspecified joint; B95.62 Methicillin resistant Staphylococcus aureus infection as the cause of diseases classified elsewhere